=== PATIENT | male | born 1990 | race Caucasian/White ===

== ENCOUNTER → 2016-08-27 | Outpatient (CLI) | payer OTHER ==
[2016-08-27 12:56] LABS: BASO % 0.4 %; BASO ABS # 0.03 K/uL (0-0.2); COMPLETE YES; EOS % 2.5 %; IG% 0.2 %; LYMPH % 33.7 %; LYMPH ABS # 2.83 K/uL (1.2-3.4); MEAN CELL VOLUME 86.3 fL (80-100); MEAN CORPUSCULAR HEMOGLOBIN 31.6 pg (25-34); MEAN CORPUSCULAR HGB CONC 36.6 g/dl (32-36); MEAN PLATELET VOLUME 11.5 fL (7.4-10.4); MONO % 6.9 %; NEUT % 56.3 %; PLATELET COUNT 265 K/uL (130-400); WHITE BLOOD COUNT 8.39 K/uL (4.8-10.8)
[2016-08-27 13:14] LABS: ALT/SGPT 73 U/L (12-78); BLOOD UREA NITROGEN 13 mg/dl (7-18); BUN/CREATININE RATIO 13.7 (10-20); CALCIUM 9.2 mg/dl (8.5-10.1); CARBON DIOXIDE 24 mmol/L (21-32); CHLORIDE 106 mmol/L (98-107); CHOLESTEROL 193 mg/dl (0-200); CREATININE 0.91 mg/dl (0.60-1.40); GLUCOSE 96 mg/dl (70-99); POTASSIUM 4.2 mmol/L (3.5-5.1); SODIUM 141 mmol/L (136-145)
[2016-08-27 13:24] LABS: ALB/GLOB RATIO 1.1 (0.9-2); ALKALINE PHOSPHATASE 121 U/L (45-117); AST/SGOT 23 U/L (15-37); CHOLESTEROL/HDL RATIO 4.4; HDL CHOLESTEROL 44 mg/dl; LDL CHOLESTEROL CALCULATED 125 mg/dl; TRIGLYCERIDES 122 mg/dl (0-150); VERY LOW DENSITY LIPOPROT CALC 24 mg/dl
== END | disposition home or self-care (01) ==
LOC: C.LABPBG 11:00
PROVIDERS: ATTEND Family Medicine
DX: I10 Essential (primary) hypertension (principal); R74.8 Abnormal levels of other serum enzymes; R53.83 Other fatigue; Z13.220 Encounter for screening for lipoid disorders

== ENCOUNTER → 2018-03-03 | Outpatient (CLI) | payer OTHER ==
[2018-03-03 13:04] LABS: ALBUMIN 4.2 gm/dl (3.4-5.0); ALKALINE PHOSPHATASE 118 U/L (45-117); ALT/SGPT 54 U/L (12-78); AST/SGOT 19 U/L (15-37); BLOOD UREA NITROGEN 11 mg/dl (7-18); CALCIUM 9.2 mg/dl (8.5-10.1); CARBON DIOXIDE 26 mmol/L (21-32); CHOLESTEROL 202 mg/dl (0-200); CREATININE 0.84 mg/dl (0.60-1.40); GLUCOSE 108 mg/dl (70-99); LDL CHOLESTEROL CALCULATED 132 mg/dl; SODIUM 139 mmol/L (136-145); TOTAL PROTEIN 7.6 gm/dl (6.4-8.2)
== END | disposition home or self-care (01) ==
LOC: C.LABPBG 10:26
PROVIDERS: ATTEND Family Medicine
DX: I10 Essential (primary) hypertension (principal); K76.0 Fatty (change of) liver, not elsewhere classified; Z13.220 Encounter for screening for lipoid disorders; E55.9 Vitamin D deficiency, unspecified

== ENCOUNTER 2023-03-22 12:35 | Inpatient (IN) ==
[2023-03-22 13:34] LABS: Hematocrit (blood only) 35.5 % (42.0-52.0); Hemoglobin 11.9 g/dl (14.0-18.0); Mean Corpuscular Hemoglobin 27.2 pg (25.0-34.0); Mean Corpuscular Hgb Conc 33.5 g/dL (32.0-36.0); Mean Corpuscular Volume 81.1 fL (80.0-100.0); Mean Platelet Volume 10.7 fL (9.4-12.4); Platelet Count 413 K/uL (130-400); RDW Coefficient of Variation 11.9 % (11.5-14.5); RDW Standard Deviation 34.9 fL (36.4-46.3); Red Blood Count 4.38 M/uL (4.70-6.10); White Blood Count 14.23 K/ul (4.8-10.8)
[2023-03-22 13:35] LABS: Basophils # (auto) 0.07 K/uL (0.00-0.20); Basophils % (auto) 0.5 %; Eosinophils # (auto) 0.15 K/uL (0.00-0.50); Eosinophils % (auto) 1.1 %; Immature Granulocytes # (auto) 0.06 K/uL (0.01-0.20); Immature Granulocytes % (auto) 0.4 %; Lymphocytes % (auto) 17.6 %; Monocytes # (auto) 1.01 K/uL (0.11-0.59); Monocytes % (auto) 7.1 %; Neutrophils # (auto) 10.44 K/uL (1.40-6.50); Neutrophils % (auto) 73.3 %; Platelet Estimate Increased (Normal)
[2023-03-22 13:58] LABS: Alanine Aminotransferase 41 U/L (7-52); Albumin Level 3.9 gm/dl (3.4-5.0); Alkaline Phosphatase 116 U/L (34-104); Anion Gap 8 (3-11); BUN Creatinine Ratio 12.4 (10-20); Bilirubin,Total 0.4 mg/dl (0.2-1.0); Blood Urea Nitrogen 11 mg/dl (6-23); Calcium 9.3 mg/dl (8.6-10.3); Carbon Dioxide 25 mmol/L (21-32); Chloride 100 mmol/L (98-107); Est GFR (Non-African American) 114.7 ml/min; Globulin 3.9 gm/dl (2.5-4.0); Glucose 93 mg/dl (70-99(Fasting)); Sodium 133 mmol/L (136-145); Total Protein 7.8 gm/dl (6.0-8.3)
--- NOTE | 2023-03-22 14:06 | Emergency Department Note ---
History of Present Illness General Chief complaint: Respiratory Problems Stated complaint: RESPIRATORY ISSUES Time Seen by Provider: 03/22/23 13:22 History of Present Illness 32-year-old male presents emergency department with a few day history of cough with hemoptysis and left upper back pain. Patient states he has had a prior history of pneumonia last year and was treated with antibiotics. 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 Patient denies a history of pulmonary embolism or tuberculosis exposure. Patient states this morning that he was coughing and he states he had hemoptysis. Patient complains of upper back pain only in the mornings for the past few days. Patient denies any significant shortness of breath. There are no other mitigating or alleviating factors Home Medications Medication Instructions Recorded Confirmed Type multivitamin 1 tab PO DAILY 01/25/19 03/22/23 History betamethasone dipropionate 0.05 % 1 applic topical BID PRN skin 08/23/22 03/22/23 Rx topical cream irritation #45 grams lisinopril 20 mg tablet 20 mg PO HS #90 tabs 03/19/23 03/22/23 Rx Allergies Allergy/AdvReac Type Severity Reaction Status Date / Time No Known Allergies Allergy Verified 03/22/23 15:03 Past Med/Surg History Medical History COVID-19 (01/2022) Dyslipidemia Fatty liver Hypertension Migraine headache Obesity (BMI 30-39.9) Pneumonia Prediabetes Tinnitus of left ear Vitamin D deficiency Surgical History H/O tooth extraction Family History Grandmother (Paternal) Ovarian cancer Father Hypertension Obstructive sleep apnea Mother No problems noted. Denies family history of Prostate cancer Myocardial infarction Breast cancer Colorectal cancer Social History Smoking Status: Never smoker Second Hand Exposure: No; Do You Dip or Chew Tobacco: No; Hx Alcohol Use: No Hx Substance Use: No Preferred Language: Albanian Communication Ability: Effective Visual Impairment: No Limitations Hearing Ability: Normal Robot Technician Required: No Beliefs That Will Affect Care: None marital status: Single Current Living Situation: Parent current occupational status: employed current occupation: Delivery w/ [employer] How many Children do You have: 0 Feels Safe at Home: Yes Childhood Exposure to Second-Hand Smoke: No Diet: regular Diet Comment: Regular caffeine: Yes during the past year weight has: remained stable Dental Care, Regularly: Yes Physical Activity Frequency: 1-2 Times per Week Physical Activity Frequency Comment: walks his dogs Seatbelt Use: always Sunscreen Use: Yes Review of Systems A total of 10 systems reviewed and were otherwise negative Respiratory: + cough and + hemoptysis Physical Exam Vital Signs Vital Signs - 24 hr 03/22/23 12:36 03/22/23 12:36 03/22/23 14:49 Temperature 36.6 C Temperature Source Temporal Artery Scan Pulse Rate 96 H 87 Respiratory Rate 16 18 Blood Pressure 131/86 152/84 H Blood Pressure Mean 101 106 Pulse Oximetry 96 94 Oxygen Delivery Method Room Air Room Air Oxygen Flow Rate Sepsis Recent Fever Within 48 Hours No Sepsis New/Unexplained Change in Mental Status N/A Sepsis Action Taken by Nursing No Action Required 03/22/23 12:44 03/22/23 12:44 Temperature Temperature Source Pulse Rate Respiratory Rate Blood Pressure Blood Pressure Mean Pulse Oximetry 94 94 Oxygen Delivery Method Room Air Room Air Oxygen Flow Rate 0 Sepsis Recent Fever Within 48 Hours Sepsis New/Unexplained Change in Mental Status Sepsis Action Taken by Nursing GENERAL: Patient is awake alert in no acute distress patient is resting comfortably and showing no signs of anxiety EYES: The conjunctivae are clear. The pupils are round and reactive. EARS, NOSE, MOUTH AND THROAT: The nose is without any evidence of any deformity. Mucous membranes are moist. Tongue is midline. NECK: The neck is nontender and supple. RESPIRATORY: Normal respiratory effort is noted there is no evidence of wheezing rhonchi or rales CARDIOVASCULAR: Regular rate and rhythm noted there no murmurs rubs or gallops normal S1 normal S2. GASTROINTESTINAL: The abdomen is soft. Abdomen is nontender. BACK: No midline tenderness or or step-off noted range of motion in flexion extension as well as rotation no signs of muscle spasm noted MUSCULOSKELETAL/EXTREMITIES: There is no evidence of gross deformity full range of motion is noted in the hips and shoulders. SKIN: There is no obvious evidence of any rash. There are no petechiae, pallor or cyanosis noted. NEUROLOGIC: Patient is awake alert and oriented x3 strength is symmetric Course Reevaluation(s) Reevaluation #1: Patient was started on triple antibiotic therapy. Patient remains in stable condition is not significantly hypoxic does not have massive hemoptysis. I discussed evaluation with the patient and further history he is not an IV drug abuser has no exposure to TB has never been in [facility] does not vape and family does not smoke in the house. I also spoke to his father Mr. Gordon who also relays this history is negative. Patient will be admitted for further e valuation Time: 15:40 Consultations Consultation #1: Case was discussed with the [facility] hospitalist at 1600 Time: 16:10 Administered Medications Azithromycin 500 mg/ Dextrose 255 mls @ 125 mls/hr IV ONE ONE Stop: 03/22/23 16:34 Last Admin: 03/22/23 15:21 Dose: 125 mls/hr Documented By: SHAUNNA Discontinued Medications Ceftriaxone Sodium (Rocephin) 2,000 mg in 70 mls @ 140 mls/hr IV NOW STA Stop: 03/22/23 15:01 Last Infusion: 03/22/23 15:48 Dose: 0 mls/hr Documented By: Admin: 03/22/23 14:46 Dose: 140 mls/hr Documented By: SHAUNNA Ioversol (Ioversol 350 Mg 125ml Prefilled Syringe) 115 ml IV ONCE ONE Stop: 03/22/23 14:19 Last Admin: 03/22/23 14:19 Dose: 115 ml Documented By: CARMELO Medical Decision Making Medical Records Attestation: I reviewed the patient's medical records. Home Medications Current Medication List: was personally reviewed by me Laboratory Data Attestation: I reviewed the patient's lab results. Patient has an elevated white blood cell count with a shift. Patient has a normal CMP. Patient is COVID-negative. 03/22/23 12:58 03/22/23 12:44 Lab Results 03/22/23 03/22/23 03/22/23 Range/Units 12:44 12:58 12:58 WBC 14.23 H (4.8-10.8) K/ul RBC 4.38 L (4.70-6.10) M/uL Hgb 11.9 L (14.0-18.0) g/dl Hct 35.5 L (42.0-52.0) % MCV 81.1 (80.0-100.0) fL MCH 27.2 (25.0-34.0) pg MCHC 33.5 (32.0-36.0) g/dL RDW Std Deviation 34.9 L (36.4-46.3) fL RDW Coeff of Aminata 11.9 (11.5-14.5) % Plt Count 413 H (130-400) K/uL MPV 10.7 (9.4-12.4) fL Immature Gran % (Auto) 0.4 % Neut % (Auto) 73.3 % Lymph % (Auto) 17.6 % Will % (Auto) 7.1 % Eos % (Auto) 1.1 % Baso % (Auto) 0.5 % Neut # (Auto) 10.44 H (1.40-6.50) K/uL Lymph # (Auto) 2.50 (1.20-3.40) K/uL Will # (Auto) 1.01 H (0.11-0.59) K/uL Eos # (Auto) 0.15 (0.00-0.50) K/uL Baso # (Auto) 0.07 (0.00-0.20) K/uL Immature Gran # (Auto) 0.06 (0.01-0.20) K/uL Platelet Estimate Increased H (Normal) PT Cancelled INR Cancelled APTT Cancelled PTT Ratio Cancelled Sodium 133 L (136-145) mmol/L Potassium TNP Chloride 100 (98-107) mmol/L Carbon Dioxide 25 (21-32) mmol/L Anion Gap 8 (3-11) BUN 11 (6-23) mg/dl Creatinine 0.89 (0.6-1.4) mg/dl Est Cr Clr Drug Dosing 155.0 ml/min Est GFR ( Amer) 133.0 ml/min Est GFR (Non-Af Amer) 114.7 ml/min BUN/Creatinine Ratio 12.4 (10-20) Glucose 93 (70-99(Fasting)) mg/dl Calcium 9.3 (8.6-10.3) mg/dl Total Bilirubin 0.4 (0.2-1.0) mg/dl AST TNP ALT 41 (7-52) U/L Alkaline Phosphatase 116 H (34-104) U/L Troponin I High Sens 5.0 (0-20) pg/ml Total Protein 7.8 (6.0-8.3) gm/dl Albumin 3.9 (3.4-5.0) gm/dl Globulin 3.9 (2.5-4.0) gm/dl Albumin/Globulin Ratio 1.0 (0.9-2) Nasal Screen MRSA (PCR) (Negative) SARS-CoV-2, RNA, NAAT (NEGATIVE) 03/22/23 03/22/23 03/22/23 Range/Units 13:57 14:07 14:14 WBC (4.8-10.8) K/ul RBC (4.70-6.10) M/uL Hgb (14.0-18.0) g/dl Hct (42.0-52.0) % MCV (80.0-100.0) fL MCH (25.0-34.0) pg MCHC (32.0-36.0) g/dL RDW Std Deviation (36.4-46.3) fL RDW Coeff of Aminata (11.5-14.5) % Plt Count (130-400) K/uL MPV (9.4-12.4) fL Immature Gran % (Auto) % Neut % (Auto) % Lymph % (Auto) % Will % (Auto) % Eos % (Auto) % Baso % (Auto) % Neut # (Auto) (1.40-6.50) K/uL Lymph # (Auto) (1.20-3.40) K/uL Will # (Auto) (0.11-0.59) K/uL Eos # (Auto) (0.00-0.50) K/uL Baso # (Auto) (0.00-0.20) K/uL Immature Gran # (Auto) (0.01-0.20) K/uL Platelet Estimate (Normal) PT 11.3 INR 1.0 APTT 28.1 PTT Ratio 1.0 Sodium (136-145) mmol/L Potassium 3.9 Chloride (98-107) mmol/L Carbon Dioxide (21-32) mmol/L Anion Gap (3-11) BUN (6-23) mg/dl Creatinine (0.6-1.4) mg/dl Est Cr Clr Drug Dosing ml/min Est GFR ( Amer) ml/min Est GFR (Non-Af Amer) ml/min BUN/Creatinine Ratio (10-20) Glucose (70-99(Fasting)) mg/dl Calcium (8.6-10.3) mg/dl Total Bilirubin (0.2-1.0) mg/dl AST 17 ALT (7-52) U/L Alkaline Phosphatase (34-104) U/L Troponin I High Sens (0-20) pg/ml Total Protein (6.0-8.3) gm/dl Albumin (3.4-5.0) gm/dl Globulin (2.5-4.0) gm/dl Albumin/Globulin Ratio (0.9-2) Nasal Screen MRSA (PCR) (Negative) SARS-CoV-2, RNA, NAAT NEGATIVE (NEGATIVE) 03/22/23 Range/Units Unknown WBC (4.8-10.8) K/ul RBC (4.70-6.10) M/uL Hgb (14.0-18.0) g/dl Hct (42.0-52.0) % MCV (80.0-100.0) fL MCH (25.0-34.0) pg MCHC (32.0-36.0) g/dL RDW Std Deviation (36.4-46.3) fL RDW Coeff of Aminata (11.5-14.5) % Plt Count (130-400) K/uL MPV (9.4-12.4) fL Immature Gran % (Auto) % Neut % (Auto) % Lymph % (Auto) % Will % (Auto) % Eos % (Auto) % Baso % (Auto) % Neut # (Auto) (1.40-6.50) K/uL Lymph # (Auto) (1.20-3.40) K/uL Will # (Auto) (0.11-0.59) K/uL Eos # (Auto) (0.00-0.50) K/uL Baso # (Auto) (0.00-0.20) K/uL Immature Gran # (Auto) (0.01-0.20) K/uL Platelet Estimate (Normal) PT INR APTT PTT Ratio Sodium (136-145) mmol/L Potassium Chloride (98-107) mmol/L Carbon Dioxide (21-32) mmol/L Anion Gap (3-11) BUN (6-23) mg/dl Creatinine (0.6-1.4) mg/dl Est Cr Clr Drug Dosing ml/min Est GFR ( Amer) ml/min Est GFR (Non-Af Amer) ml/min BUN/Creatinine Ratio (10-20) Glucose (70-99(Fasting)) mg/dl Calcium (8.6-10.3) mg/dl Total Bilirubin (0.2-1.0) mg/dl AST ALT (7-52) U/L Alkaline Phosphatase (34-104) U/L Troponin I High Sens (0-20) pg/ml Total Protein (6.0-8.3) gm/dl Albumin (3.4-5.0) gm/dl Globulin (2.5-4.0) gm/dl Albumin/Globulin Ratio (0.9-2) Nasal Screen MRSA (PCR) Negative (Negative) SARS-CoV-2, RNA, NAAT (NEGATIVE) Imaging Data Attestation: I personally reviewed and interpreted this imaging study as follows: My Impression: Chest x-ray interpreted by me left upper lobe infiltrate is present Radiologist's Impression: Chest X-Ray 03/22/23 12:44 SINGLE VIEW CHEST CLINICAL HISTORY: Atypical chest pain. FINDINGS: A PA chest radiograph is compared to study dated 01/21/2022. The cardiomediastinal silhouette is unremarkable. Left upper lobe consolidation is typical for pneumonia. The right lung appears clear. No large pleural effusion is seen. No pneumothorax is identify. The bony thorax is grossly intact. IMPRESSION: Left upper lobe consolidation is typical for pneumonia. Clinical correlation will be required and radiographic follow-up to resolution is recommended. ACT 112: Negative or not required by law. Electronically signed by: Kai Hernandez M.D. 03/22/2023 2:09 PM Chest CTA 03/22/23 13:22 CT ANGIOGRAM OF THE CHEST CLINICAL HISTORY: Atypical/left-sided chest pain. COMPARISON STUDY: Chest x-ray dated 04/01/2023. Chest CT dated 01/15/2019. TECHNIQUE: Following the IV administration of 150 cc of Optiray 350, CT angiogram of the chest was performed from the upper abdomen to the thoracic inlet utilizing the pulmonary embolus protocol. Images are reviewed in the axial, sagittal, and coronal planes. 3-D MIPS images are created and assessed. IV contrast was administered without complication. A dose lowering technique was utilized adhering to the principles of ALARA. CT DOSE: 837.75 mGy.cm FINDINGS: Thyroid: Imaged portions of the thyroid gland are normal in size and attenuation. Thoracic aorta: The thoracic aorta is normal in caliber and demonstrates 4- vessel variant arch anatomy. No dissection is seen. Pulmonary vasculature: The pulmonary trunk is normal in caliber. There are no filling defects identified in main, lobar, or segmental pulmonary branches to suggest pulmonary embolus. Heart: The heart is normal in size and without pericardial effusion. Lungs and pleural spaces: There is masslike consolidation in the left upper lobe with evidence of cavitation. Mild patchy consolidation is also seen in the superior segment of the left lower lobe just below the major fissure. The right lung is clear. No pleural effusion is identified. The trachea and central airways are patent. 3 mm right lower lobe pulmonary nodules on images #61 and #69 and at least 4 left lower lobe nodules measure up to 4 mm are unchanged and statistically of doubtful significance in this age group. Mediastinum: There is mediastinal lymphadenopathy. Prevascular nodes measure up to 13 mm in short axis. Maddison: There are enlarged left hilar lymph nodes. These measure up to 15 mm in short axis. Axillae: There is no axillary lymphadenopathy. Upper abdomen: There is a small hiatal hernia. The spleen is enlarged measuring 14.5 cm in length. Skeletal structures: No lytic or blastic bony lesions are seen. IMPRESSION: 1. There is no evidence of pulmonary embolus in the main, lobar, or segmental pulmonary arteries. 2. Masslike consolidation in the left upper lobe with evidence of developing cavitation/necrosis. The appearance is typical for pneumonia, and there is also minimal consolidation in the left lower lobe. Clinical correlation will be re quired and radiographic follow-up to resolution is recommended. 3. Mildly enlarged mediastinal and left hilar lymph nodes are likely reactive. 4. Low suspicion pulmonary nodules measuring up to 4 mm have not significantly changed from 2019 and are statistically of doubtful significance in this age group. 5. The right lung is clear. No pleural effusion is identified. 6. Splenomegaly. 7. Additional findings as above. ACT 112: Negative or not required by law. Electronically signed by: Kai Hernandez M.D. 03/22/2023 3:14 PM MDM Narrative Medical decision making differential diagnosis includes pneumonia, PE, cancer, TB, bronchitis Plan is to check labs, chest x-ray, CT Patient was started on triple antibiotic therapy. Patient is currently in isolation, I did discuss the evaluation with the patient the patient's father Plan is to admit for left upper lobe pneumonia Impression & Plan Necrotizing pneumonia Discharge Plan Visit Data Chief Complaint: Respiratory Problems Stated Complaint: RESPIRATORY ISSUES ED Provider: Lasha Lara Discharge Problem: Necrotizing pneumonia Patient Disposition: Admitted As Inpatient Forms Stand Alone Forms: My [facility] Prescriptions Prescriptions: No Action lisinopril 20 mg tablet 20 mg PO HS Qty: 90 1RF multivitamin tablet 1 tab PO DAILY betamethasone dipropionate 0.05 % cream 1 applic topical BID PRN (Reason: skin irritation) Qty: 45 0RF Referrals Referrals: Marie Esparza DO [Primary Care Provider] -
--- NOTE | 2023-03-22 14:10 | XRay Report ---
SINGLE VIEW CHEST CLINICAL HISTORY: Atypical chest pain. FINDINGS: A PA chest radiograph is compared to study dated 01/21/2022. The cardiomediastinal silhouett e is unremarkable. Left upper lobe consolidation is typical for pneumonia. The right lung appears eamon ar. No large pleural effusion is seen. No pneumothorax is identify. The bony thorax is grossly intact . IMPRESSION: Left upper lobe consolidation is typical for pneumonia. Clinical correlation will be requ ired and radiographic follow-up to resolution is recommended. ACT 112: Negative or not required by law. Electronically signed by: Kai Hernandez M.D. 03/22/2023 2:09 PM
[2023-03-22] MEDS ORDERED: IOVERSOL 350 MG 125mL Prefilled Syringe IV ONE (14:18)
[2023-03-22] MEDS ORDERED: VANCOMYCIN CONSULT ACTIVE PRN (14:32)
[2023-03-22] MEDS ORDERED: VANCOMYCIN HCL 2,500 MG in SODIUM CHLORIDE 0.9% 500 ML IV ONE (14:32)
[2023-03-22] MEDS ORDERED: cefTRIAXone SODIUM 2,000 MG/70 ML BAG IV STA (14:32)
[2023-03-22] MEDS ORDERED: AZITHROMYCIN 500 MG in DEXTROSE 5% 250 ML IV ONE (14:32)
[2023-03-22 14:46] LABS: Potassium 3.9 mmol/L (3.5-5.1)
[2023-03-22 14:59] LABS: Partial Thromboplastin Time 28.1 Seconds (21.0-31.0); Prothrombin Time 11.3 Seconds (9.0-12.0)
--- NOTE | 2023-03-22 15:16 | CT Scan Report ---
CT ANGIOGRAM OF THE CHEST CLINICAL HISTORY: Atypical/left-sided chest pain. COMPARISON STUDY: Chest x-ray dated 04/01/2023. Chest CT dated 01/15/2019. TECHNIQUE: Following the IV administration of 150 cc of Optiray 350, CT angiogram of the chest was pe rformed from the upper abdomen to the thoracic inlet utilizing the pulmonary embolus protocol. Images are reviewed in the axial, sagittal, and coronal planes. 3-D MIPS images are created and assessed. I V contrast was administered without complication. A dose lowering technique was utilized adhering to the principles of ALARA. CT DOSE: 837.75 mGy.cm FINDINGS: Thyroid: Imaged portions of the thyroid gland are normal in size and attenuation. Thoracic aorta: The thoracic aorta is normal in caliber and demonstrates 4-vessel variant arch anatom y. No dissection is seen. Pulmonary vasculature: The pulmonary trunk is normal in caliber. There are no filling defects identif ied in main, lobar, or segmental pulmonary branches to suggest pulmonary embolus. Heart: The heart is normal in size and without pericardial effusion. Lungs and pleural spaces: There is masslike consolidation in the left upper lobe with evidence of cav itation. Mild patchy consolidation is also seen in the superior segment of the left lower lobe just b elow the major fissure. The right lung is clear. No pleural effusion is identified. The trachea and c entral airways are patent. 3 mm right lower lobe pulmonary nodules on images #61 and #69 and at least 4 left lower lobe nodules measure up to 4 mm are unchanged and statistically of doubtful significanc e in this age group. Mediastinum: There is mediastinal lymphadenopathy. Prevascular nodes measure up to 13 mm in short axi s. Maddison: There are enlarged left hilar lymph nodes. These measure up to 15 mm in short axis. Axillae: There is no axillary lymphadenopathy. Upper abdomen: There is a small hiatal hernia. The spleen is enlarged measuring 14.5 cm in length. Skeletal structures: No lytic or blastic bony lesions are seen. IMPRESSION: 1. There is no evidence of pulmonary embolus in the main, lobar, or segmental pulmonary arteries. 2. Masslike consolidation in the left upper lobe with evidence of developing cavitation/necrosis. The appearance is typical for pneumonia, and there is also minimal consolidation in the left lower lobe. Clinical correlation will be required and radiographic follow-up to resolution is recommended. 3. Mildly enlarged mediastinal and left hilar lymph nodes are likely reactive. 4. Low suspicion pulmonary nodules measuring up to 4 mm have not significantly changed from 2019 and are statistically of doubtful significance in this age group. 5. The right lung is clear. No pleural effusion is identified. 6. Splenomegaly. 7. Additional findings as above. ACT 112: Negative or not required by law. Electronically signed by: Kai Hernandez M.D. 03/22/2023 3:14 PM
[2023-03-22 16:12] LABS: C Reactive Protein 10.62 mg/dl (0-0.5)
--- NOTE | 2023-03-22 16:37 | History & Physical Report ---
Date of Service March 22, 2023 Assessment & Plan (1) Necrotizing pneumonia: Plan: 32yo male with ongoing cough and hemoptysis. CT as above with lesion in MARNIE with evidence of necrosis and early cavitation. Patient is afebrile, HD stable, no respiratory distress. Labs significant for elevated WBC and platelets. Nonsmoker, no identifiable risk factors for TB Likely CAP, strep pneumonia? -Admit to medical -Will maintain Airborne isolation precautions for now -Check sputum culture, procalcitonin, Quantiferon gold and MRSA nares -Antibiotic coverage with Azithromycin and Unasyn -Tylenol PRN -Tessalon PRN -Pulmonary consultation appreciated (2) Hypertension: Plan: Chronic. Blood pressure elevated. PCP recently changed Lisinopril to Losartan for possible management of cough - patient did not start this medication yet. Cough likely secondary to PNA rather than medication effects -Continue Lisinopril -Monitor BP F/E/N - Heplock, encourage PO intake, electrolytes WNL, Heart Healthy diet Ppx - Lovenox Code - Full Dispo - Admit to medical History of Present Illness Chief Complaint: cough, hemoptysis Primary Care Provider: Marie Esparza DO David Gordon is a 32 you male with history of HTN, HLP presenting with cough and hemoptysis. Patient has had ongoing cough for several weeks. This week he noted worsening cough with increase in sputum production with blood tinged sputum. He has not had documented fever but has had chills and night sweats ans well as some inspiratory pain in his left upper lung posteriorly. He denies chest pain, nausea, vomiting, diarrhea or urinary complaints. No preceding URI symptoms reported. He is a lifelong nonsmoker. No recent dental work Did have pneumonia in January 2019 - presented to the ER at that time with cough and hemoptysis. He was discharged home on Azithromycin and Cefdinir at that time and reports that his symptoms resolved. Patient with no history of homelessness, incarceration or living in a [place] [facility] setting. No close contact with an persons with known Tuberculosis. He does spend a lot of time in his basement which he reports is musty and moldy smelling at times. In the ER he is afebrile, HD stable Adequate oxygenation on room air with no tachypnea ER Course: Azithromycin Ceftriaxone Allergies Allergy/AdvReac Type Severity Reaction Status Date / Time No Known Allergies Allergy Verified 03/22/23 15:03 Home Medications Medication Instructions Recorded Confirmed Type multivitamin 1 tab PO DAILY 01/25/19 03/22/23 History betamethasone dipropionate 0.05 % 1 applic topical BID PRN skin 08/23/22 03/22/23 Rx topical cream irritation #45 grams lisinopril 20 mg tablet 20 mg PO HS #90 tabs 03/19/23 03/22/23 Rx Past Med/Surg History Medical History COVID-19 (01/2022) Dyslipidemia Fatty liver Hypertension Migraine headache Obesity (BMI 30-39.9) Pneumonia Prediabetes Tinnitus of left ear Vitamin D deficiency Surgical History H/O tooth extraction Family History Grandmother (Paternal) Ovarian cancer Father Hypertension Obstructive sleep apnea Mother No problems noted. Denies family history of Prostate cancer Myocardial infarction Breast cancer Colorectal cancer Social History Smoking Status: Never smoker Second Hand Exposure: No; Do You Dip or Chew Tobacco: No; Hx Alcohol Use: No Hx Substance Use: No Preferred Language: Chinese Communication Ability: Effective Visual Impairment: No Limitations Hearing Ability: Normal Auto Inspector Required: No Beliefs That Will Affect Care: None marital status: Single Current Living Situation: Parent current occupational status: employed current occupation: Delivery w/ [employer] How many Children do You have: 0 Feels Safe at Home: Yes Childhood Exposure to Second-Hand Smoke: No Diet: regular Diet Comment: Regular caffeine: Yes during the past year weight has: remained stable Dental Care, Regularly: Yes Physical Activity Frequency: 1-2 Times per Week Physical Activity Frequency Comment: walks his dogs Seatbelt Use: always Sunscreen Use: Yes Review of Systems Review of Systems: All systems reviewed & are unremarkable except as noted in HPI & below Physical Exam Physical Exam: General: patient resting comfortably, NAD, non-toxic in appearance, AA&O x 4 Skin: warm, dry, intact, no rashes or lesions HEENT: NC/AT, PERRL, EOMI, anicteric sclera, conjunctiva without injection, external ear normal to inspection and nontender, nares patent, moist mucus membranes, dentition intact, no oropharyngeal lesions, neck supple, trachea midline, no LAD, no thyromegaly, no JVD Heart: +S1/S2, regular, no m/r/g Lungs: equal air entry bilaterally, no rales/rhonchi/wheezes Abd: +BS, soft, NT/ND, no masses/organomegaly/ascites Ext: warm, 2+ pulses in UE/LE bilaterally, no clubbing/cyanosis or edema Neuro: nonfocal, patient AA&O x 4, speech intact, no facial droop, moving all extremities on command with equal strength 5/5 Results & Data Results & Data Vital Signs (Past 12 Hours) Vital Signs Temp Pulse Resp BP Pulse Ox O2 Del Method O2 Flow Rate 03/22/23 12:44 94 Room Air 0 03/22/23 12:44 94 Room Air 03/22/23 14:49 87 18 152/84 H 94 Room Air 03/22/23 12:36 Room Air 03/22/23 12:36 36.6 C 96 H 16 131/86 96 Laboratory Results Laboratory Results WBC 14.23 K/ul (4.8-10.8) H 03/22/23 12:58 RBC 4.38 M/uL (4.70-6.10) L 03/22/23 12:58 Hgb 11.9 g/dl (14.0-18.0) L 03/22/23 12:58 Hct 35.5 % (42.0-52.0) L 03/22/23 12:58 MCV 81.1 fL (80.0-100.0) 03/22/23 12:58 MCH 27.2 pg (25.0-34.0) 03/22/23 12:58 MCHC 33.5 g/dL (32.0-36.0) 03/22/23 12:58 RDW Std Deviation 34.9 fL (36.4-46.3) L 03/22/23 12:58 RDW Coeff of Aminata 11.9 % (11.5-14.5) 03/22/23 12:58 Plt Count 413 K/uL (130-400) H 03/22/23 12:58 MPV 10.7 fL (9.4-12.4) 03/22/23 12:58 Immature Gran % (Auto) 0.4 % 03/22/23 12:58 Neut % (Auto) 73.3 % 03/22/23 12:58 Lymph % (Auto) 17.6 % 03/22/23 12:58 Cache % (Auto) 7.1 % 03/22/23 12:58 Eos % (Auto) 1.1 % 03/22/23 12:58 Baso % (Auto) 0.5 % 03/22/23 12:58 Neut # (Auto) 10.44 K/uL (1.40-6.50) H 03/22/23 12:58 Lymph # (Auto) 2.50 K/uL (1.20-3.40) 03/22/23 12:58 Cache # (Auto) 1.01 K/uL (0.11-0.59) H 03/22/23 12:58 Eos # (Auto) 0.15 K/uL (0.00-0.50) 03/22/23 12:58 Baso # (Auto) 0.07 K/uL (0.00-0.20) 03/22/23 12:58 Immature Gran # (Auto) 0.06 K/uL (0.01-0.20) 03/22/23 12:58 Platelet Estimate Increased (Normal) H 03/22/23 12:58 ESR 96 mm/hr (0-15) H 03/22/23 16:02 PT 11.3 Seconds (9.0-12.0) 03/22/23 14:07 INR 1.0 (0.9-1.1) 03/22/23 14:07 APTT 28.1 Seconds (21.0-31.0) 03/22/23 14:07 PTT Ratio 1.0 03/22/23 14:07 Sodium 133 mmol/L (136-145) L 03/22/23 12:44 Potassium 3.9 mmol/L (3.5-5.1) 03/22/23 14:14 Chloride 100 mmol/L (98-107) 03/22/23 12:44 Carbon Dioxide 25 mmol/L (21-32) 03/22/23 12:44 Anion Gap 8 (3-11) 03/22/23 12:44 BUN 11 mg/dl (6-23) 03/22/23 12:44 Creatinine 0.89 mg/dl (0.6-1.4) 03/22/23 12:44 Est Cr Clr Drug Dosing 155.0 ml/min 03/22/23 12:44 Est GFR ( Amer) 133.0 ml/min 03/22/23 12:44 Est GFR (Non-Af Amer) 114.7 ml/min 03/22/23 12:44 BUN/Creatinine Ratio 12.4 (10-20) 03/22/23 12:44 Glucose 93 mg/dl (70-99(Fasting)) 03/22/23 12:44 Calcium 9.3 mg/dl (8.6-10.3) 03/22/23 12:44 Total Bilirubin 0.4 mg/dl (0.2-1.0) 03/22/23 12:44 AST 17 U/L (13-39) 03/22/23 14:14 ALT 41 U/L (7-52) 03/22/23 12:44 Alkaline Phosphatase 116 U/L (34-104) H 03/22/23 12:44 Troponin I High Sens 5.0 pg/ml (0-20) 03/22/23 12:44 C-Reactive Protein 10.62 mg/dl (0-0.5) H 03/22/23 12:44 Total Protein 7.8 gm/dl (6.0-8.3) 03/22/23 12:44 Albumin 3.9 gm/dl (3.4-5.0) 03/22/23 12:44 Globulin 3.9 gm/dl (2.5-4.0) 03/22/23 12:44 Albumin/Globulin Ratio 1.0 (0.9-2) 03/22/23 12:44 Nasal Screen MRSA (PCR) Negative (Negative) 03/22/23 Unknown SARS-CoV-2, RNA, NAAT NEGATIVE (NEGATIVE) 03/22/23 13:57 Impressions Chest X-Ray 03/22/23 12:44 SINGLE VIEW CHEST CLINICAL HISTORY: Atypical chest pain. FINDINGS: A PA chest radiograph is compared to study dated 01/21/2022. The cardiomediastinal silhouette is unremarkable. Left upper lobe consolidation is t ypical for pneumonia. The right lung appears clear. No large pleural effusion is seen. No pneumothorax is identify. The bony thorax is grossly intact. IMPRESSION: Left upper lobe consolidation is typical for pneumonia. Clinical correlation will be required and radiographic follow-up to resolution is recommended. ACT 112: Negative or not required by law. Electronically signed by: Kai Hernandez M.D. 03/22/2023 2:09 PM Chest CTA 03/22/23 13:22 CT ANGIOGRAM OF THE CHEST CLINICAL HISTORY: Atypical/left-sided chest pain. COMPARISON STUDY: Chest x-ray dated 04/01/2023. Chest CT dated 01/15/2019. TECHNIQUE: Following the IV administration of 150 cc of Optiray 350, CT angiogram of the chest was performed from the upper abdomen to the thoracic inlet utilizing the pulmonary embolus protocol. Images are reviewed in the axial, sagittal, and coronal planes. 3-D MIPS images are created and assessed. IV contrast was administered without complication. A dose lowering technique was utilized adhering to the principles of ALARA. CT DOSE: 837.75 mGy.cm FINDINGS: Thyroid: Imaged portions of the thyroid gland are normal in size and attenuation. Thoracic aorta: The thoracic aorta is normal in caliber and demonstrates 4- vessel variant arch anatomy. No dissection is seen. Pulmonary vasculature: The pulmonary trunk is normal in caliber. There are no filling defects identified in main, lobar, or segmental pulmonary branches to suggest pulmonary embolus. Heart: The heart is normal in size and without pericardial effusion. Lungs and pleural spaces: There is masslike consolidation in the left upper lobe with evidence of cavitation. Mild patchy consolidation is also seen in the superior segment of the left lower lobe just below the major fissure. The right lung is clear. No pleural effusion is identified. The trachea and central airways are patent. 3 mm right lower lobe pulmonary nodules on images #61 and #69 and at least 4 left lower lobe nodules measure up to 4 mm are unchanged and statistically of doubtful significance in this age group. Mediastinum: There is mediastinal lymphadenopathy. Prevascular nodes measure up to 13 mm in short axis. Maddison: There are enlarged left hilar lymph nodes. These measure up to 15 mm in short axis. Axillae: There is no axillary lymphadenopathy. Upper abdomen: There is a small hiatal hernia. The spleen is enlarged measuring 14.5 cm in length. Skeletal structures: No lytic or blastic bony lesions are seen. IMPRESSION: 1. There is no evidence of pulmonary embolus in the main, lobar, or segmental pulmonary arteries. 2. Masslike consolidation in the left upper lobe with evidence of developing cavitation/necrosis. The appearance is typical for pneumonia, and there is also minimal consolidation in the left lower lobe. Clinical correlation will be required and radiographic follow-up to resolution is recommended. 3. Mildly enlarged mediastinal and left hilar lymph nodes are likely reactive. 4. Low suspicion pulmonary nodules measuring up to 4 mm have not significantly changed from 2019 and are statistically of doubtful significance in this age group. 5. The right lung is clear. No pleural effusion is identified. 6. Splenomegaly. 7. Additional findings as above. ACT 112: Negative or not required by law. Electronically signed by: Kai Hernandez M.D. 03/22/2023 3:14 PM Code Status & VTE Plan VTE Prophylaxis Plan VTE Prophylaxis will be ordered: Yes PG Care Time/CCT Total # of Minutes Spent Total Time Spent with Patient: Total time spent is greater than 50% in coordination of care (as documented) at patient's floor/unit and/or counseling patient: Coding Level of Care Code 83133 INT INP/OBS CARE 2/55MIN Diagnoses Necrotizing pneumonia J85.0 Hypertension I10 Hypertension type: essential hypertension (2) Hypertension Hypertension type: essential hypertension Qualified Code(s): I10 - Essential (primary) hypertension
[2023-03-22 17:00] LABS: Adenovirus PCR Not Detected (NotDetected); Bordetella parapertussis PCR Not Detected (NotDetected); Bordetella pertussis PCR Not Detected (NotDetected); Chlamydia pneumoniae PCR Not Detected (NotDetected); Coronavirus 229E PCR Not Detected (NotDetected); Coronavirus CoV-2 (COVID19)PCR Not Detected (NotDetected); Coronavirus HKU1 PCR Not Detected (NotDetected); Coronavirus NL63 PCR Not Detected (NotDetected); Coronavirus OC43PCR Not Detected (NotDetected); Human Metapneumovirus PCR Not Detected (NotDetected); Influenza A PCR Not Detected (NotDetected); Influenza B PCR Not Detected (NotDetected); Mycoplasma pneumoniae PCR Not Detected (NotDetected); Parainfluenza Virus 1 PCR Not Detected (NotDetected); Parainfluenza Virus 2 PCR Not Detected (NotDetected); Parainfluenza Virus 3 PCR Not Detected (NotDetected); Parainfluenza Virus 4 PCR Not Detected (NotDetected); Respiratory Syncytial VirusPCR Not Detected (NotDetected); Rhinovirus/Enterovirus PCR Not Detected (NotDetected)
[2023-03-22] MEDS ORDERED: ACETAMINOPHEN 325 MG TAB PO PRN (18:01)
[2023-03-22] MEDS ORDERED: ONDANSETRON INJ 2 MG/ML 2 ML VIAL IV PRN (18:01)
[2023-03-22] MEDS: AMPICILLIN/SULBACTAM SOD 3,000 MG in 0.9 % SODIUM CHLORIDE 100 ML IV SCH (18:48)
[2023-03-22] MEDS: ENOXAPARIN INJ 40 MG/0.4 ML SYR SQ SCH (20:08)
[2023-03-22] MEDS: lisinopril 20 MG TAB PO SCH (20:08)
[2023-03-22] MEDS: BENZONATATE 100 MG CAPSULE PO SCH (20:08)
[2023-03-23] MEDS: AMPICILLIN/SULBACTAM SOD 3,000 MG in 0.9 % SODIUM CHLORIDE 100 ML IV SCH ×4 (01:01→20:02)
--- NOTE | 2023-03-23 07:31 | Hospitalist Progress Note ---
Date of Service March 23, 2023 Assessment & Plan (1) Necrotizing pneumonia: Plan: 32yo male with ongoing cough and hemoptysis for past 5-6 days with chills but no fevers. Reports chronic dry cough for years Had PNA last year with similar symptoms. No occupation exposure/travel history/unintentional weight loss/night sweats, incarceration/group living, non- smoker. ?CAP, strep pneumonia? ESR 96, CRP 10.62 WBC 14.2k on admission, no fever CXR w/ Left upper lobe consolidation is typical for pneumonia CT chest NEGATIVE for PE * Noting Masslike consolidation in the left upper lobe with evidence of developing cavitation/necrosis. The appearance is typical for pneumonia, and there is also minimal consolidation in the left lower lobe. Clinical correlation will be required and radiographic follow-up to resolution is recommended. Mildly enlarged mediastinal and left hilar lymph nodes are likely reactive. Low suspicion pulmonary nodules measuring up to 4 mm have not significantly changed from 2019 and are statistically of doubtful significance in this age group. Continues on Unasyn/Azithromycin Azithromycin decreased to 250mg daily per pulmonology Blood cultures pending Sputum cx, AFB, legionella urine cx ordered/to be collected Pulmonology consulted, recs as below: * Continue respiratory isolation, airborne * QuantiFERON pending. * Check sputum AFB --> If AFBs can be collected on 3 consecutive days and are negative, the patient can come out of isolation. * Check cocci titers and cryptococcal antigen If the patient's QuantiFERON is negative, cultures are negative, and sputum AFB smears are negative on 3 consecutive days, could consider bronchoscopy at that point in time. Supportive care Antipyretics, antiemetics prn Lovenox SQ for DVT prophylaxis Monitor labs on repeat (2) Hypertension: Plan: Chronic. Elevated on admission, recent switch by PCP from lisinopril to losartan for concerns for cough (did not start) Given cough likely from above, resumed prior lisinopril BP stable 110/70 this morning AHA diet Monitor BP (3) Vitamin D deficiency: Plan: lwo on outpatient labs, replacement ordered f/u pcp Plan continued inpatient stay, changed to full admit Admission and Anticipated Discharge Date Admission Date: March 22, 2023 Supervising Physician Co-Signing Physician Notes The patient was not seen by me. The chart was reviewed. Case discussed with LUIS DANIEL Agarwal. Agree with assessment and plan Subjective Eval this morning, sitting up in bed, feeling well. No further hemoptysis, sputum in container to send. Eval by pulmonology this morning. Patient reports feeling well/usual health but ok w/ plan as outlined with pulmonology/repeat sputum/etc, continued abx. Questions/concerns addressed at this time. Physical Exam Physical Exam: General: WN/WD male sitting up in bed, talkative, no shortness of breath/tachypnea/hypoxia HEENT: head normocephalic, atraumatic, mmm trachea midline Resp[: no distress, respirations even/unlabored, no cough/tachypnea, sputum on bedside table without blood, faint inspiratory wheeze MARNIE, no crackles/rales, 96% on RA CV: RRR< no significant m/r/g, no pitting edema/calf tenderness GI: +BS, soft/NT : no fatima MSK/Neuro: no focal deficit, no slurred speech, strength equal throughout, follows commands Psych: AOx3, pleasant and cooperative with exam Results & Data Results & Data Vital Signs (Past 12 Hours) Vital Signs Temp Pulse Resp BP Pulse Ox O2 Del Method 03/22/23 19:35 Room Air 03/22/23 19:35 Room Air 03/22/23 22:21 36.9 C 77 18 117/71 96 Room Air Laboratory Results 03/23/23 03/23/23 03/23/23 Range/Units 07:56 07:42 07:42 WBC 9.15 (4.8-10.8) K/ul RBC 4.33 L (4.70-6.10) M/uL Hgb 11.6 L (14.0-18.0) g/dl Hct 35.9 L (42.0-52.0) % MCV 82.9 (80.0-100.0) fL MCH 26.8 (25.0-34.0) pg MCHC 32.3 (32.0-36.0) g/dL RDW Std Deviation 37.0 (36.4-46.3) fL RDW Coeff of Aminata 12.1 (11.5-14.5) % Plt Count 405 H (130-400) K/uL MPV 10.2 (9.4-12.4) fL Immature Gran % (Auto) 0.5 % Neut % (Auto) 71.1 % Lymph % (Auto) 18.7 % [place] % (Auto) 7.7 % Eos % (Auto) 1.6 % Baso % (Auto) 0.4 % Neut # (Auto) 6.50 (1.40-6.50) K/uL Lymph # (Auto) 1.71 (1.20-3.40) K/uL [place] # (Auto) 0.70 H (0.11-0.59) K/uL Eos # (Auto) 0.15 (0.00-0.50) K/uL Baso # (Auto) 0.04 (0.00-0.20) K/uL Immature Gran # (Auto) 0.05 (0.01-0.20) K/uL Platelet Estimate (Normal) ESR (0-15) mm/hr PT INR APTT PTT Ratio Sodium 139 (136-145) mmol/L Potassium 4.1 Chloride 103 (98-107) mmol/L Carbon Dioxide 28 (21-32) mmol/L Anion Gap 8 (3-11) BUN 9 (6-23) mg/dl Creatinine 0.71 (0.6-1.4) mg/dl Est Cr Clr Drug Dosing 191.9 ml/min Est GFR ( Amer) 144.9 ml/min Est GFR (Non-Af Amer) 125.0 ml/min BUN/Creatinine Ratio 12.7 (10-20) Glucose 100 H (70-99(Fasting)) mg/dl Calcium 9.1 (8.6-10.3) mg/dl Magnesium 2.1 (1.7-2.4) mg/dl Total Bilirubin 0.4 (0.2-1.0) mg/dl AST 11 L ALT 31 (7-52) U/L Alkaline Phosphatase 93 (34-104) U/L Troponin I High Sens (0-20) pg/ml C-Reactive Protein (0-0.5) mg/dl Total Protein 7.7 (6.0-8.3) gm/dl Albumin 3.7 (3.4-5.0) gm/dl Globulin 4.0 (2.5-4.0) gm/dl Albumin/Globulin Ratio 0.9 (0.9-2) Procalcitonin (0-0.5) ng/ml Nasal Screen MRSA (PCR) (Negative) Adenovirus (PCR) (NotDetected) B. pertussis DNA (PCR) (NotDetected) B.parapertussis DNA PCR (NotDetected) C. pneumoniae DNA (PCR) (NotDetected) Coccidioides Ab (ID) Pending Coronavirus OC43 (PCR) (NotDetected) Coronavirus HKU1 (PCR) (NotDetected) Coronavirus 229E (PCR) (NotDetected) SARS-CoV-2 (PCR) (NotDetected) Coronavirus NL63 (PCR) (NotDetected) Cryptococcus Source Pending Cryptococcal Ag (Latex) Pending Human Metapneumovir PCR (NotDetected) Influenza Type A (PCR) (NotDetected) Influenza Type B (PCR) (NotDetected) Urine Legionella Ag M. pneumoniae (PCR) (NotDetected) Parainfluenza 1 (PCR) (NotDetected) Parainfluenza 2 (PCR) (NotDetected) Parainfluenza 3 (PCR) (NotDetected) Parainfluenza 4 (PCR) (NotDetected) RSV (PCR) (NotDetected) Entero/Rhino (PCR) (NotDetected) SARS-CoV-2, RNA, NAAT (NEGATIVE) TB Test (QFT) Gold Plus TB Test (QFT) Nil TB Test Mitogen - Nil TB Test Ag - Nil 1 TB Test Ag - Nil 2 03/22/23 03/22/23 03/22/23 Range/Units Unknown 20:30 16:02 WBC (4.8-10.8) K/ul RBC (4.70-6.10) M/uL Hgb (14.0-18.0) g/dl Hct (42.0-52.0) % MCV (80.0-100.0) fL MCH (25.0-34.0) pg MCHC (32.0-36.0) g/dL RDW Std Deviation (36.4-46.3) fL RDW Coeff of Aminata (11.5-14.5) % Plt Count (130-400) K/uL MPV (9.4-12.4) fL Immature Gran % (Auto) % Neut % (Auto) % Lymph % (Auto) % [place] % (Auto) % Eos % (Auto) % Baso % (Auto) % Neut # (Auto) (1.40-6.50) K/uL Lymph # (Auto) (1.20-3.40) K/uL [place] # (Auto) (0.11-0.59) K/uL Eos # (Auto) (0.00-0.50) K/uL Baso # (Auto) (0.00-0.20) K/uL Immature Gran # (Auto) (0.01-0.20) K/uL Platelet Estimate (Normal) ESR (0-15) mm/hr PT INR APTT PTT Ratio Sodium (136-145) mmol/L Potassium Chloride (98-107) mmol/L Carbon Dioxide (21-32) mmol/L Anion Gap (3-11) BUN (6-23) mg/dl Creatinine (0.6-1.4) mg/dl Est Cr Clr Drug Dosing ml/min Est GFR ( Amer) ml/min Est GFR (Non-Af Amer) ml/min BUN/Creatinine Ratio (10-20) Glucose (70-99(Fasting)) mg/dl Calcium (8.6-10.3) mg/dl Magnesium (1.7-2.4) mg/dl Total Bilirubin (0.2-1.0) mg/dl AST ALT (7-52) U/L Alkaline Phosphatase (34-104) U/L Troponin I High Sens (0-20) pg/ml C-Reactive Protein (0-0.5) mg/dl Total Protein (6.0-8.3) gm/dl Albumin (3.4-5.0) gm/dl Globulin (2.5-4.0) gm/dl Albumin/Globulin Ratio (0.9-2) Procalcitonin < 0.05 (0-0.5) ng/ml Nasal Screen MRSA (PCR) Negative (Negative) Adenovirus (PCR) (NotDetected) B. pertussis DNA (PCR) (NotDetected) B.parapertussis DNA PCR (NotDetected) C. pneumoniae DNA (PCR) (NotDetected) Coccidioides Ab (ID) Coronavirus OC43 (PCR) (NotDetected) Coronavirus HKU1 (PCR) (NotDetected) Coronavirus 229E (PCR) (NotDetected) SARS-CoV-2 (PCR) (NotDetected) Coronavirus NL63 (PCR) (NotDetected) Cryptococcus Source Cryptococcal Ag (Latex) Human Metapneumovir PCR (NotDetected) Influenza Type A (PCR) (NotDetected) Influenza Type B (PCR) (NotDetected) Urine Legionella Ag Pending M. pneumoniae (PCR) (NotDetected) Parainfluenza 1 (PCR) (NotDetected) Parainfluenza 2 (PCR) (NotDetected) Parainfluenza 3 (PCR) (NotDetected) Parainfluenza 4 (PCR) (NotDetected) RSV (PCR) (NotDetected) Entero/Rhino (PCR) (NotDetected) SARS-CoV-2, RNA, NAAT (NEGATIVE) TB Test (QFT) Gold Plus TB Test (QFT) Nil TB Test Mitogen - Nil TB Test Ag - Nil 1 TB Test Ag - Nil 2 03/22/23 03/22/23 03/22/23 Range/Units 16:02 16:02 15:56 WBC (4.8-10.8) K/ul RBC (4.70-6.10) M/uL Hgb (14.0-18.0) g/dl Hct (42.0-52.0) % MCV (80.0-100.0) fL MCH (25.0-34.0) pg MCHC (32.0-36.0) g/dL RDW Std Deviation (36.4-46.3) fL RDW Coeff of Aminata (11.5-14.5) % Plt Count (130-400) K/uL MPV (9.4-12.4) fL Immature Gran % (Auto) % Neut % (Auto) % Lymph % (Auto) % [place] % (Auto) % Eos % (Auto) % Baso % (Auto) % Neut # (Auto) (1.40-6.50) K/uL Lymph # (Auto) (1.20-3.40) K/uL [place] # (Auto) (0.11-0.59) K/uL Eos # (Auto) (0.00-0.50) K/uL Baso # (Auto) (0.00-0.20) K/uL Immature Gran # (Auto) (0.01-0.20) K/uL Platelet Estimate (Normal) ESR 96 H (0-15) mm/hr PT INR APTT PTT Ratio Sodium (136-145) mmol/L Potassium Chloride (98-107) mmol/L Carbon Dioxide (21-32) mmol/L Anion Gap (3-11) BUN (6-23) mg/dl Creatinine (0.6-1.4) mg/dl Est Cr Clr Drug Dosing ml/min Est GFR ( Amer) ml/min Est GFR (Non-Af Amer) ml/min BUN/Creatinine Ratio (10-20) Glucose (70-99(Fasting)) mg/dl Calcium (8.6-10.3) mg/dl Magnesium (1.7-2.4) mg/dl Total Bilirubin (0.2-1.0) mg/dl AST ALT (7-52) U/L Alkaline Phosphatase (34-104) U/L Troponin I High Sens (0-20) pg/ml C-Reactive Protein (0-0.5) mg/dl Total Protein (6.0-8.3) gm/dl Albumin (3.4-5.0) gm/dl Globulin (2.5-4.0) gm/dl Albumin/Globulin Ratio (0.9-2) Procalcitonin (0-0.5) ng/ml Nasal Screen MRSA (PCR) (Negative) Adenovirus (PCR) Not Detected (NotDetected) B. pertussis DNA (PCR) Not Detected (NotDetected) B.parapertussis DNA PCR Not Detected (NotDetected) C. pneumoniae DNA (PCR) Not Detected (NotDetected) Coccidioides Ab (ID) Coronavirus OC43 (PCR) Not Detected (NotDetected) Coronavirus HKU1 (PCR) Not Detected (NotDetected) Coronavirus 229E (PCR) Not Detected (NotDetected) SARS-CoV-2 (PCR) Not Detected (NotDetected) Coronavirus NL63 (PCR) Not Detected (NotDetected) Cryptococcus Source Cryptococcal Ag (Latex) Human Metapneumovir PCR Not Detected (NotDetected) Influenza Type A (PCR) Not Detected (NotDetected) Influenza Type B (PCR) Not Detected (NotDetected) Urine Legionella Ag M. pneumoniae (PCR) Not Detected (NotDetected) Parainfluenza 1 (PCR) Not Detected (NotDetected) Parainfluenza 2 (PCR) Not Detected (NotDetected) Parainfluenza 3 (PCR) Not Detected (NotDetected) Parainfluenza 4 (PCR) Not Detected (NotDetected) RSV (PCR) Not Detected (NotDetected) Entero/Rhino (PCR) Not Detected (NotDetected) SARS-CoV-2, RNA, NAAT (NEGATIVE) TB Test (QFT) Gold Plus Pending TB Test (QFT) Nil Pending TB Test Mitogen - Nil Pending TB Test Ag - Nil 1 Pending TB Test Ag - Nil 2 Pending 03/22/23 03/22/23 03/22/23 Range/Units 14:14 14:07 13:57 WBC (4.8-10.8) K/ul RBC (4.70-6.10) M/uL Hgb (14.0-18.0) g/dl Hct (42.0-52.0) % MCV (80.0-100.0) fL MCH (25.0-34.0) pg MCHC (32.0-36.0) g/dL RDW Std Deviation (36.4-46.3) fL RDW Coeff of Aminata (11.5-14.5) % Plt Count (130-400) K/uL MPV (9.4-12.4) fL Immature Gran % (Auto) % Neut % (Auto) % Lymph % (Auto) % [place] % (Auto) % Eos % (Auto) % Baso % (Auto) % Neut # (Auto) (1.40-6.50) K/uL Lymph # (Auto) (1.20-3.40) K/uL [place] # (Auto) (0.11-0.59) K/uL Eos # (Auto) (0.00-0.50) K/uL Baso # (Auto) (0.00-0.20) K/uL Immature Gran # (Auto) (0.01-0.20) K/uL Platelet Estimate (Normal) ESR (0-15) mm/hr PT 11.3 INR 1.0 APTT 28.1 PTT Ratio 1.0 Sodium (136-145) mmol/L Potassium 3.9 Chloride (98-107) mmol/L Carbon Dioxide (21-32) mmol/L Anion Gap (3-11) BUN (6-23) mg/dl Creatinine (0.6-1.4) mg/dl Est Cr Clr Drug Dosing ml/min Est GFR ( Amer) ml/min Est GFR (Non-Af Amer) ml/min BUN/Creatinine Ratio (10-20) Glucose (70-99(Fasting)) mg/dl Calcium (8.6-10.3) mg/dl Magnesium (1.7-2.4) mg/dl Total Bilirubin (0.2-1.0) mg/dl AST 17 ALT (7-52) U/L Alkaline Phosphatase (34-104) U/L Troponin I High Sens (0-20) pg/ml C-Reactive Protein (0-0.5) mg/dl Total Protein (6.0-8.3) gm/dl Albumin (3.4-5.0) gm/dl Globulin (2.5-4.0) gm/dl Albumin/Globulin Ratio (0.9-2) Procalcitonin (0-0.5) ng/ml Nasal Screen MRSA (PCR) (Negative) Adenovirus (PCR) (NotDetected) B. pertussis DNA (PCR) (NotDetected) B.parapertussis DNA PCR (NotDetected) C. pneumoniae DNA (PCR) (NotDetected) Coccidioides Ab (ID) Coronavirus OC43 (PCR) (NotDetected) Coronavirus HKU1 (PCR) (NotDetected) Coronavirus 229E (PCR) (NotDetected) SARS-CoV-2 (PCR) (NotDetected) Coronavirus NL63 (PCR) (NotDetected) Cryptococcus Source Cryptococcal Ag (Latex) Human Metapneumovir PCR (NotDetected) Influenza Type A (PCR) (NotDetected) Influenza Type B (PCR) (NotDetected) Urine Legionella Ag M. pneumoniae (PCR) (NotDetected) Parainfluenza 1 (PCR) (NotDetected) Parainfluenza 2 (PCR) (NotDetected) Parainfluenza 3 (PCR) (NotDetected) Parainfluenza 4 (PCR) (NotDetected) RSV (PCR) (NotDetected) Entero/Rhino (PCR) (NotDetected) SARS-CoV-2, RNA, NAAT NEGATIVE (NEGATIVE) TB Test (QFT) Gold Plus TB Test (QFT) Nil TB Test Mitogen - Nil TB Test Ag - Nil 1 TB Test Ag - Nil 2 03/22/23 03/22/23 03/22/23 Range/Units 12:58 12:58 12:44 WBC 14.23 H (4.8-10.8) K/ul RBC 4.38 L (4.70-6.10) M/uL Hgb 11.9 L (14.0-18.0) g/dl Hct 35.5 L (42.0-52.0) % MCV 81.1 (80.0-100.0) fL MCH 27.2 (25.0-34.0) pg MCHC 33.5 (32.0-36.0) g/dL RDW Std Deviation 34.9 L (36.4-46.3) fL RDW Coeff of Aminata 11.9 (11.5-14.5) % Plt Count 413 H (130-400) K/uL MPV 10.7 (9.4-12.4) fL Immature Gran % (Auto) 0.4 % Neut % (Auto) 73.3 % Lymph % (Auto) 17.6 % [place] % (Auto) 7.1 % Eos % (Auto) 1.1 % Baso % (Auto) 0.5 % Neut # (Auto) 10.44 H (1.40-6.50) K/uL Lymph # (Auto) 2.50 (1.20-3.40) K/uL [place] # (Auto) 1.01 H (0.11-0.59) K/uL Eos # (Auto) 0.15 (0.00-0.50) K/uL Baso # (Auto) 0.07 (0.00-0.20) K/uL Immature Gran # (Auto) 0.06 (0.01-0.20) K/uL Platelet Estimate Increased H (Normal) ESR (0-15) mm/hr PT Cancelled INR Cancelled APTT Cancelled PTT Ratio Cancelled Sodium 133 L (136-145) mmol/L Potassium TNP Chloride 100 (98-107) mmol/L Carbon Dioxide 25 (21-32) mmol/L Anion Gap 8 (3-11) BUN 11 (6-23) mg/dl Creatinine 0.89 (0.6-1.4) mg/dl Est Cr Clr Drug Dosing 155.0 ml/min Est GFR ( Amer) 133.0 ml/min Est GFR (Non-Af Amer) 114.7 ml/min BUN/Creatinine Ratio 12.4 (10-20) Glucose 93 (70-99(Fasting)) mg/dl Calcium 9.3 (8.6-10.3) mg/dl Magnesium (1.7-2.4) mg/dl Total Bilirubin 0.4 (0.2-1.0) mg/dl AST TNP ALT 41 (7-52) U/L Alkaline Phosphatase 116 H (34-104) U/L Troponin I High Sens 5.0 (0-20) pg/ml C-Reactive Protein 10.62 H (0-0.5) mg/dl Total Protein 7.8 (6.0-8.3) gm/dl Albumin 3.9 (3.4-5.0) gm/dl Globulin 3.9 (2.5-4.0) gm/dl Albumin/Globulin Ratio 1.0 (0.9-2) Procalcitonin (0-0.5) ng/ml Nasal Screen MRSA (PCR) (Negative) Adenovirus (PCR) (NotDetected) B. pertussis DNA (PCR) (NotDetected) B.parapertussis DNA PCR (NotDetected) C. pneumoniae DNA (PCR) (NotDetected) Coccidioides Ab (ID) Coronavirus OC43 (PCR) (NotDetected) Coronavirus HKU1 (PCR) (NotDetected) Coronavirus 229E (PCR) (NotDetected) SARS-CoV-2 (PCR) (NotDetected) Coronavirus NL63 (PCR) (NotDetected) Cryptococcus Source Cryptococcal Ag (Latex) Human Metapneumovir PCR (NotDetected) Influenza Type A (PCR) (NotDetected) Influenza Type B (PCR) (NotDetected) Urine Legionella Ag M. pneumoniae (PCR) (NotDetected) Parainfluenza 1 (PCR) (NotDetected) Parainfluenza 2 (PCR) (NotDetected) Parainfluenza 3 (PCR) (NotDetected) Parainfluenza 4 (PCR) (NotDetected) RSV (PCR) (NotDetected) Entero/Rhino (PCR) (NotDetected) SARS-CoV-2, RNA, NAAT (NEGATIVE) TB Test (QFT) Gold Plus TB Test (QFT) Nil TB Test Mitogen - Nil TB Test Ag - Nil 1 TB Test Ag - Nil 2 Diagnostic Findings Chest X-Ray 03/22/23 12:44 SINGLE VIEW CHEST CLINICAL HISTORY: Atypical chest pain. FINDINGS: A PA chest radiograph is compared to study dated 01/21/2022. The cardiomediastinal silhouette is unremarkable. Left upper lobe consolidation is typical for pneumonia. The right lung appears clear. No large pleural effusion is seen. No pneumothorax is identify. The bony thorax is grossly intact. IMPRESSION: Left upper lobe consolidation is typical for pneumonia. Clinical correlation will be required and radiographic follow-up to resolution is recommended. ACT 112: Negative or not required by law. Electronically signed by: Kai Hernandez M.D. 03/22/2023 2:09 PM Chest CTA 03/22/23 13:22 CT ANGIOGRAM OF THE CHEST CLINICAL HISTORY: Atypical/left-sided chest pain. COMPARISON STUDY: Chest x-ray dated 04/01/2023. Chest CT dated 01/15/2019. TECHNIQUE: Following the IV administration of 150 cc of Optiray 350, CT angiogram of the chest was performed from the upper abdomen to the thoracic inlet utilizing the pulmonary embolus protocol. Images are reviewed in the axial, sagittal, and coronal planes. 3-D MIPS images are created and assessed. IV contrast was administered without complication. A dose lowering technique was utilized adhering to the principles of ALARA. CT DOSE: 837.75 mGy.cm FINDINGS: Thyroid: Imaged portions of the thyroid gland are normal in size and attenuation. Thoracic aorta: The thoracic aorta is normal in caliber and demonstrates 4- vessel variant arch anatomy. No dissection is seen. Pulmonary vasculature: The pulmonary trunk is normal in caliber. There are no filling defects identified in main, lobar, or segmental pulmonary branches to suggest pulmonary embolus. Heart: The heart is normal in size and without pericardial effusion. Lungs and pleural spaces: There is masslike consolidation in the left upper lobe with evidence of cavitation. Mild patchy consolidation is also seen in the superior segment of the left lower lobe just below the major fissure. The right lung is clear. No pleural effusion is identified. The trachea and central airways are patent. 3 mm right lower lobe pulmonary nodules on images #61 and #69 and at least 4 left lower lobe nodules measure up to 4 mm are unchanged and statistically of doubtful significance in this age group. Mediastinum: There is mediastinal lymphadenopathy. Prevascular nodes measure up to 13 mm in short axis. [place]: There are enlarged left hilar lymph nodes. These measure up to 15 mm in short axis. Axillae: There is no axillary lymphadenopathy. Upper abdomen: There is a small hiatal hernia. The spleen is enlarged measuring 14.5 cm in length. Skeletal structures: No lytic or blastic bony lesions are seen. IMPRESSION: 1. There is no evidence of pulmonary embolus in the main, lobar, or segmental pulmonary arteries. 2. Masslike consolidation in the left upper lobe with evidence of developing cavitation/necrosis. The appearance is typical for pneumonia, and there is also minimal consolidation in the left lower lobe. Clinical correlation will be required and radiographic follow-up to resolution is recommended. 3. Mildly enlarged mediastinal and left hilar lymph nodes are likely reactive. 4. Low suspicion pulmonary nodules measuring up to 4 mm have not significantly changed from 2019 and are statistically of doubtful significance in this age group. 5. The right lung is clear. No pleural effusion is identified. 6. Splenomegaly. 7. Additional findings as above. ACT 112: Negative or not required by law. Electronically signed by: Kai Hernandez M.D. 03/22/2023 3:14 PM PG Care Time/CCT Total # of Minutes Spent Total Time Spent with Patient: Total time spent is greater than 50% in coordination of care (as documented) at patient's floor/unit and/or counseling patient: Coding Level of Care Code 84456 SUB INP/OBS CARE 3/50MIN Diagnoses Necrotizing pneumonia J85.0 Hypertension I10 Hypertension type: essential hypertension Vitamin D deficiency E55.9 (2) Hypertension Hypertension type: essential hypertension Qualified Code(s): I10 - Essential (primary) hypertension
--- NOTE | 2023-03-23 07:47 | Pulmonary Consultation ---
Date of Consultation March 23, 2023 Assessment & Plan (1) Necrotizing pneumonia: (2) Abnormal CT scan of lung: Plan Impression: 33-year-old male with cavitary with airspace opacity in the posterior segment left upper lobe. This likely represents bacterial pneumonia but cannot rule out other etiologies. He is hemodynamically stable and stable from a respiratory standpoint. Recommendations: Continue respiratory isolation. QuantiFERON pending. We will check sputum AFB. If AFBs can be collected on 3 consecutive days and are negative, the patient can come out of isolation. We will also check cocci titers and cryptococcal antigen. Legionella pending. We will check urinary histo. 2. Continue Unasyn and azithromycin for now. Azithromycin can be decreased to 250 mg orally daily. 3. If the patient's QuantiFERON is negative, cultures are negative, and sputum AFB smears are negative on 3 consecutive days, could consider bronchoscopy at that point in time. Thanks for the opportunity of caring for this patient. Feel free to contact us with questions or concerns History of Present Illness Attending Physician: Valentin Ayala MD History of Present Illness Asked by hospitalist to evaluate this patient with an abnormal CT scan and hemoptysis. History is obtained from discussion with the patient as well as review the electronic medical record. Patient is a 33-year-old male non-smoker who reports about 5 or 6 days ago he developed some cough with blood-tinged phlegm. He had some subjective chills but no overt fevers. He was diagnosed with pneumonia last year and states the symptoms felt similar to that. He was seen in the emergency room where he had an abnormal chest x-ray and CT scan showing a cavitary process within the p osterior segment of the left upper lobe. He has been placed on isolation protocol and initiated on Unasyn and azithromycin. Cultures are pending. 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 He has no significant occupational exposures. No pertinent travel history. He denies any unintentional weight loss. He lives at home with his parents. They have dogs at home but no other exotic pets. No family history of lung disease. Allergies Allergy/AdvReac Type Severity Reaction Status Date / Time No Known Allergies Allergy Verified 03/22/23 15:03 Home Medications Medication Instructions Recorded Confirmed Type multivitamin 1 tab PO DAILY 01/25/19 03/22/23 History betamethasone dipropionate 0.05 % 1 applic topical BID PRN skin 08/23/22 03/22/23 Rx topical cream irritation #45 grams lisinopril 20 mg tablet 20 mg PO HS #90 tabs 03/19/23 03/22/23 Rx Patient History Medical History COVID-19 (01/2022) Dyslipidemia Fatty liver Hypertension Migraine headache Obesity (BMI 30-39.9) Pneumonia Prediabetes Tinnitus of left ear Vitamin D deficiency Surgical History H/O tooth extraction Family History Grandmother (Paternal) Ovarian cancer Father Hypertension Obstructive sleep apnea Mother No problems noted. Denies family history of Prostate cancer Myocardial infarction Breast cancer Colorectal cancer Social History Smoking Status: Never smoker Second Hand Exposure: No; Do You Dip or Chew Tobacco: No; Hx Alcohol Use: No Hx Substance Use: No Preferred Language: Hungarian Communication Ability: Effective Visual Impairment: No Limitations Hearing Ability: Normal Receipt And Report Clerk Required: No Beliefs That Will Affect Care: None marital status: Single Current Living Situation: Parent Current Living Situation Comment: With parents current occupational status: employed current occupation: Delivery w/ [employer] How many Children do You have: 0 Feels Safe at Home: Yes Childhood Exposure to Second-Hand Smoke: No Diet: regular Diet Comment: Regular caffeine: Yes during the past year weight has: remained stable Dental Care, Regularly: Yes Physical Activity Frequency: 1-2 Times per Week Physical Activity Frequency Comment: walks his dogs Seatbelt Use: always Sunscreen Use: Yes Assistive Devices: None Review of Systems Review of Systems: Please refer to admission H&P Physical Exam Constitutional: WD/WN, vitals as above Neck: trachea midline, no thyromegaly Respiratory: no respiratory distress, no labored breathing, no cough and not tachypneic Auscultation: + wheezes Faint inspiratory squeak in the posterior left upper lung field, otherwise clear to auscultation Cardiovascular: RRR, no murmur, no edema Gastrointestinal (Abdomen): normal bowel sounds, soft, nontender, no hepatosplenomegaly Musculoskeletal: Extremities: extremities normal to inspection Skin: no rashes, warm and dry Neurologic: Nonfocal exam Lymphatic: no cervical lymphadenopathy Results & Data Results & Data Vital Signs (Past 12 Hours) Vital Signs Temp Pulse Resp BP Pulse Ox O2 Del Method 03/22/23 22:21 36.9 C 77 18 117/71 96 Room Air Critical Care Results & Data Vital Signs (Past 12 Hours) Vital Signs Temp Pulse Resp BP Pulse Ox O2 Del Method 03/22/23 22:21 36.9 C 77 18 117/71 96 Room Air Lab & Micro Results (Past 24 Hours) RBC 4.38 M/uL (4.70-6.10) L 03/22/23 WBC 14.23 K/ul (4.8-10.8) H 03/22/23 Hgb 11.9 g/dl (14.0-18.0) L 03/22/23 Hct 35.5 % (42.0-52.0) L 03/22/23 MCV 81.1 fL (80.0-100.0) 03/22/23 MCH 27.2 pg (25.0-34.0) 03/22/23 MCHC 33.5 g/dL (32.0-36.0) 03/22/23 RDW Standard Deviation 34.9 fL (36.4-46.3) L 03/22/23 RDW Coefficient of Variation 11.9 % (11.5-14.5) 03/22/23 Plt Count 413 K/uL (130-400) H 03/22/23 MPV 10.7 fL (9.4-12.4) 03/22/23 Neutrophils (%) (Auto) 73.3 % 03/22/23 Lymphocytes (%) (Auto) 17.6 % 03/22/23 Monocytes # (Auto) 1.01 K/uL (0.11-0.59) H 03/22/23 Eosinophils # (Auto) 0.15 K/uL (0.00-0.50) 03/22/23 Immature Granulocyte % (Auto) 0.4 % 03/22/23 Neutrophils # (Auto) 10.44 K/uL (1.40-6.50) H 03/22/23 Lymphocytes # (Auto) 2.50 K/uL (1.20-3.40) 03/22/23 Monocytes # (Auto) 1.01 K/uL (0.11-0.59) H 03/22/23 Eosinophils # (Auto) 0.15 K/uL (0.00-0.50) 03/22/23 Basophils # (Auto) 0.07 K/uL (0.00-0.20) 03/22/23 Immature Granulocyte # (Auto) 0.06 K/uL (0.01-0.20) 3 Na 133 mmol/L (136-145) L 03/22/23 K 3.9 mmol/L (3.5-5.1) 03/22/23 Cl 100 mmol/L (98-107) 03/22/23 CO2 25 mmol/L (21-32) 03/22/23 Anion Gap 8 (3-11) 03/22/23 BUN 11 mg/dl (6-23) 03/22/23 Creatinine 0.89 mg/dl (0.6-1.4) 03/22/23 Estimated GFR ( Amer) 133.0 ml/min 03/22/23 Estimated GFR (Non-Af Amer) 114.7 ml/min 03/22/23 BUN/Creatinine Ratio 12.4 (10-20) 03/22/23 Glu 93 mg/dl (70-99(Fasting)) 03/22/23 Ca 9.3 mg/dl (8.6-10.3) 03/22/23 Total Bilirubin 0.4 mg/dl (0.2-1.0) 03/22/23 AST 17 U/L (13-39) 03/22/23 ALT 41 U/L (7-52) 03/22/23 Alkaline Phosphatase 116 U/L (34-104) H 03/22/23 TP 7.8 gm/dl (6.0-8.3) 03/22/23 Albumin 3.9 gm/dl (3.4-5.0) 03/22/23 Globulin 3.9 gm/dl (2.5-4.0) 03/22/23 Albumin/Globulin Ratio 1.0 (0.9-2) 03/22/23 Calcium Level 9.3 mg/dl (8.6-10.3) 03/22/23 12:44 Prothromb Time International Ratio 1.0 (0.9-1.1) 03/22/23 14:0 7 Microbiology 03/23/23 01:08 Gram Stain - Final Sputum, Expectorated Diagnostic Findings (Past 24 Hours) Chest X-Ray 03/22/23 12:44 SINGLE VIEW CHEST CLINICAL HISTORY: Atypical chest pain. FINDINGS: A PA chest radiograph is compared to study dated 01/21/2022. The cardiomediastinal silhouette is unremarkable. Left upper lobe consolidation is typical for pneumonia. The right lung appears clear. No large pleural effusion is seen. No pneumothorax is identify. The bony thorax is grossly intact. IMPRESSION: Left upper lobe consolidation is typical for pneumonia. Clinical correlation will be required and radiographic follow-up to resolution is recommended. ACT 112: Negative or not required by law. Electronically signed by: Kai Hernandez M.D. 03/22/2023 2:09 PM Chest CTA 03/22/23 13:22 CT ANGIOGRAM OF THE CHEST CLINICAL HISTORY: Atypical/left-sided chest pain. COMPARISON STUDY: Chest x-ray dated 04/01/2023. Chest CT dated 01/15/2019. TECHNIQUE: Following the IV administration of 150 cc of Optiray 350, CT angiogram of the chest was performed from the upper abdomen to the thoracic inlet utilizing the pulmonary embolus protocol. Images are reviewed in the axial, sagittal, and coronal planes. 3-D MIPS images are created and assessed. IV contrast was administered without complication. A dose lowering technique was utilized adhering to the principles of ALARA. CT DOSE: 837.75 mGy.cm FINDINGS: Thyroid: Imaged portions of the thyroid gland are normal in size and attenuation. Thoracic aorta: The thoracic aorta is normal in caliber and demonstrates 4- vessel variant arch anatomy. No dissection is seen. Pulmonary vasculature: The pulmonary trunk is normal in caliber. There are no filling defects identified in main, lobar, or segmental pulmonary branches to suggest pulmonary embolus. Heart: The heart is normal in size and without pericardial effusion. Lungs and pleural spaces: There is masslike consolidation in the left upper lobe with evidence of cavitation. Mild patchy consolidation is also seen in the superior segment of the left lower lobe just below the major fissure. The right lung is clear. No pleural effusion is identified. The trachea and central airways are patent. 3 mm right lower lobe pulmonary nodules on images #61 and #69 and at least 4 left lower lobe nodules measure up to 4 mm are unchanged and statistically of doubtful significance in this age group. Mediastinum: There is mediastinal lymphadenopathy. Prevascular nodes measure up to 13 mm in short axis. Maddison: There are enlarged left hilar lymph nodes. These measure up to 15 mm in short axis. Axillae: There is no axillary lymphadenopathy. Upper abdomen: There is a small hiatal hernia. The spleen is enlarged measuring 14.5 cm in length. Skeletal structures: No lytic or blastic bony lesions are seen. IMPRESSION: 1. There is no evidence of pulmonary embolus in the main, lobar, or segmental pulmonary arteries. 2. Masslike consolidation in the left upper lobe with evidence of developing cavitation/necrosis. The appearance is typical for pneumonia, and there is also minimal consolidation in the left lower lobe. Clinical correlation will be required and radiographic follow-up to resolution is recommended. 3. Mildly enlarged mediastinal and left hilar lymph nodes are likely reactive. 4. Low suspicion pulmonary nodules measuring up to 4 mm have not significantly changed from 2019 and are statistically of doubtful significance in this age group. 5. The right lung is clear. No pleural effusion is identified. 6. Splenomegaly. 7. Additional findings as above. ACT 112: Negative or not required by law. Electronically signed by: Kai Hernandez M.D. 03/22/2023 3:14 PM I & O Totals 24 Hours 03/22/23 03/23/23 03/24/23 06:59 06:59 06:59 Intake Total 1149 / 1149 Balance 1149 / 1149 Cumulative 03/22/23 12:35 thru 03/23/23 06:46 Intake Total 1149 Balance 1149 RT Ventilator Mngmt (Last Documented) Ventilator Ordered Settings Respiratory Rate 18 03/22/23 22:21 Ventilator - PT Measurements Respiratory Rate 18 PG Care Time/CCT Total # of Minutes Spent Total Time Spent with Patient: Total time spent is greater than 50% in coordination of care (as documented) at patient's floor/unit and/or counseling patient: Coding Level of Care Code 46639 IN/OBS CONSULT LVL 4,60M Diagnoses Necrotizing pneumonia J85.[address] scan of lung R91.8
[2023-03-23 08:25] LABS: Basophils # (auto) 0.04 K/uL (0.00-0.20); Basophils % (auto) 0.4 %; Eosinophils # (auto) 0.15 K/uL (0.00-0.50); Eosinophils % (auto) 1.6 %; Hematocrit (blood only) 35.9 % (42.0-52.0); Hemoglobin 11.6 g/dl (14.0-18.0); Immature Granulocytes # (auto) 0.05 K/uL (0.01-0.20); Immature Granulocytes % (auto) 0.5 %; Lymphocytes # (auto) 1.71 K/uL (1.20-3.40); Lymphocytes % (auto) 18.7 %; Mean Corpuscular Hemoglobin 26.8 pg (25.0-34.0); Mean Corpuscular Hgb Conc 32.3 g/dL (32.0-36.0); Mean Corpuscular Volume 82.9 fL (80.0-100.0); Mean Platelet Volume 10.2 fL (9.4-12.4); Monocytes % (auto) 7.7 %; Neutrophils % (auto) 71.1 %; Platelet Count 405 K/uL (130-400); RDW Coefficient of Variation 12.1 % (11.5-14.5); Red Blood Count 4.33 M/uL (4.70-6.10); White Blood Count 9.15 K/ul (4.8-10.8)
[2023-03-23 08:27] LABS: Albumin Globulin Ratio 0.9 (0.9-2); Albumin Level 3.7 gm/dl (3.4-5.0); BUN Creatinine Ratio 12.7 (10-20); Bilirubin,Total 0.4 mg/dl (0.2-1.0); Calcium 9.1 mg/dl (8.6-10.3); Creatinine Clr Calc Pharmacy 191.9 ml/min; Est GFR (African American) 144.9 ml/min; Magnesium 2.1 mg/dl (1.7-2.4); Potassium 4.1 mmol/L (3.5-5.1); Total Protein 7.7 gm/dl (6.0-8.3)
[2023-03-23] MEDS: BENZONATATE 100 MG CAPSULE PO SCH ×3 (08:39→20:03)
[2023-03-23] MEDS ORDERED: AZITHROMYCIN 500 MG in DEXTROSE 5% 250 ML IV SCH (09:00)
--- NOTE | 2023-03-23 09:14 | Electrocardiogram Report ---
Test Reason : Blood Pressure : / mmHG Vent. Rate : 096 BPM Atrial Rate : 096 BPM P-R Int : 160 ms QRS Dur : 094 ms QT Int : 348 ms P-R-T Axes : 034 060 022 degrees QTc Int : 439 ms Normal sinus rhythm Normal ECG When compared with ECG of 15-JAN-2019 15:57, No significant change was found Confirmed by Hitesh Dias ([id number]) on 03/23/2023 9:13:48 AM Referred By: Confirmed By:Hitesh Dias
[2023-03-23] MEDS: AZITHROMYCIN 250 MG TAB PO SCH (09:27)
[2023-03-23] MEDS: CHOLECALCIFEROL 5,000 UNITS 125 MCG TAB PO SCH (09:28)
[2023-03-23] MEDS: ENOXAPARIN INJ 40 MG/0.4 ML SYR SQ SCH (20:02)
[2023-03-23] MEDS: lisinopril 20 MG TAB PO SCH (20:03)
[2023-03-24] MEDS: AMPICILLIN/SULBACTAM SOD 3,000 MG in 0.9 % SODIUM CHLORIDE 100 ML IV SCH ×3 (01:44→13:33)
[2023-03-24 06:15] LABS: Basophils # (auto) 0.04 K/uL (0.00-0.20); Basophils % (auto) 0.5 %; Eosinophils # (auto) 0.31 K/uL (0.00-0.50); Eosinophils % (auto) 3.5 %; Hematocrit (blood only) 38.5 % (42.0-52.0); Hemoglobin 12.4 g/dl (14.0-18.0); Immature Granulocytes # (auto) 0.04 K/uL (0.01-0.20); Immature Granulocytes % (auto) 0.5 %; Lymphocytes # (auto) 1.93 K/uL (1.20-3.40); Lymphocytes % (auto) 21.9 %; Mean Corpuscular Hemoglobin 26.8 pg (25.0-34.0); Mean Corpuscular Hgb Conc 32.2 g/dL (32.0-36.0); Mean Corpuscular Volume 83.3 fL (80.0-100.0); Monocytes # (auto) 0.62 K/uL (0.11-0.59); Neutrophils # (auto) 5.87 K/uL (1.40-6.50); Neutrophils % (auto) 66.6 %; Platelet Count 439 K/uL (130-400); RDW Standard Deviation 36.5 fL (36.4-46.3); Red Blood Count 4.62 M/uL (4.70-6.10); White Blood Count 8.81 K/ul (4.8-10.8)
[2023-03-24 06:32] LABS: BUN Creatinine Ratio 12.9 (10-20); Creatinine Clr Calc Pharmacy 160.3 ml/min; Est GFR (African American) 134.6 ml/min; Est GFR (Non-African American) 116.1 ml/min; Potassium 4.4 mmol/L (3.5-5.1)
[2023-03-24] MEDS: CHOLECALCIFEROL 5,000 UNITS 125 MCG TAB PO SCH (08:03)
[2023-03-24] MEDS: BENZONATATE 100 MG CAPSULE PO SCH ×2 (08:03→14:14)
[2023-03-24] MEDS: AZITHROMYCIN 250 MG TAB PO SCH (08:04)
--- NOTE | 2023-03-24 08:15 | Hospitalist Progress Note ---
Date of Service March 24, 2023 Assessment & Plan (1) Necrotizing pneumonia: Plan: 32yo male with ongoing cough and hemoptysis for past 5-6 days with chills but no fevers. Reports chronic dry cough for years Had PNA last year with similar symptoms. No occupation exposure/travel history/unintentional weight loss/night sweats, incarceration/group living, non- smoker. ?CAP, strep pneumonia? ESR 96, CRP 10.62 WBC 14.2k on admission, no fever CXR w/ Left upper lobe consolidation is typical for pneumonia CT chest NEGATIVE for PE * Noting Masslike consolidation in the left upper lobe with evidence of developing cavitation/necrosis. The appearance is typical for pneumonia, and there is also minimal consolidation in the left lower lobe. Clinical correlation will be required and radiographic follow-up to resolution is recommended. Mildly enlarged mediastinal and left hilar lymph nodes are likely reactive. Low suspicion pulmonary nodules measuring up to 4 mm have not significantly changed from 2019 and are statistically of doubtful significance in this age group. Continues on Unasyn/Azithromycin Azithromycin decreased to 250mg daily per pulmonology Blood cultures NGTD, afebrile Legionella pending Sputum cx moderate normal marino on preliminary -- monitor final Pulmonology consulted, recs as below: * Continue respiratory isolation, airborne * QuantiFERON pending. * Sputum AFB pending, repeating daily * --> If AFBs can be collected on 3 consecutive days and are negative, the patient can come out of isolation. Day 2 today, collected this morning * Cocci titers and cryptococcal antigen pending If the patient's QuantiFERON is negative, cultures are negative, and sputum AFB smears are negative on 3 consecutive days, could consider bronchoscopy at that point in time. Supportive care Antipyretics, antiemetics prn Lovenox SQ for DVT prophylaxis 03/24--> Patient feeling well, wanting to see about possible discharge. Per pulm, need negative quant gold, per lab will likely be back in next 24 hours. Will plan to dc on Augmentin to complete 10 day course tomorrow. Needs repeat CXR in 2-3 weeks, CT chest 10-12 weeks Monitor labs on repeat (2) Hypertension: Plan: Chronic. COntrolled Elevated on admission, recent switch by PCP from lisinopril to losartan for concerns for cough (did not start) Given cough likely from above, resumed prior lisinopril BP stable 119/77 this morning and monitoring (3) Vitamin D deficiency: Plan: lwo on outpatient labs, replacement ordered f/u pcp Plan continued inpatient stay but hopeful discharge early AM tomorrow if quantiferon gold back and negative and will plan to discharge on PO Augmentin to complete 10 day course Needs repeat CXR in 2-3 weeks, CT chest 10-12 weeks Admission and Anticipated Discharge Date Admission Date: March 23, 2023 Supervising Physician Co-Signing Physician Notes The patient was not seen by me. The chart was reviewed. Case discussed with LUIS DANIEL Agarwal. Agree with assessment and plan Subjective Eval this morning, family at bedside. Feeling well. Was hoping to go home today. Discussed AFB x 3 days but will discuss possible dc w/ pulmonology who patient states was by this morning. Continued clear/white sputum, no further blood tinge. Discussed w/ maeve Grigsby to call lab for quant gold. if negative, can dc on PO augmentin. Lab reports will be within 24 hours. Will plan for dc tomorrow. Physical Exam Physical Exam: General: WN/WD male sitting up in bed, NAD, family at bedside HEENT: head normocephalic, atraumatic, mmm trachea midline Resp[: no distress, respirations even/unlabored, no cough/tachypnea, sputum on bedside table without blood, faint inspiratory wheeze MARNIE, no crackles/rales, 97% on RA CV: RRR, no significant m/r/g, no pitting edema/calf tenderness GI: +BS, soft/NT : no fatima MSK/Neuro: no focal deficit, no slurred speech, strength equal throughout, follows commands Psych: AOx3, pleasant and cooperative with exam Results & Data Results & Data Vital Signs (Past 12 Hours) Vital Signs Temp Pulse Resp BP Pulse Ox O2 Del Method 03/24/23 07:48 36.6 C 77 20 119/77 97 Room Air Laboratory Results 03/24/23 03/24/23 Range/Units 05:33 05:33 WBC 8.81 (4.8-10.8) K/ul RBC 4.62 L (4.70-6.10) M/uL Hgb 12.4 L (14.0-18.0) g/dl Hct 38.5 L (42.0-52.0) % MCV 83.3 (80.0-100.0) fL MCH 26.8 (25.0-34.0) pg MCHC 32.2 (32.0-36.0) g/dL RDW Std Deviation 36.5 (36.4-46.3) fL RDW Coeff of Aminata 12.0 (11.5-14.5) % Plt Count 439 H (130-400) K/uL MPV 10.0 (9.4-12.4) fL Immature Gran % (Auto) 0.5 % Neut % (Auto) 66.6 % Lymph % (Auto) 21.9 % Peach % (Auto) 7.0 % Eos % (Auto) 3.5 % Baso % (Auto) 0.5 % Neut # (Auto) 5.87 (1.40-6.50) K/uL Lymph # (Auto) 1.93 (1.20-3.40) K/uL Peach # (Auto) 0.62 H (0.11-0.59) K/uL Eos # (Auto) 0.31 (0.00-0.50) K/uL Baso # (Auto) 0.04 (0.00-0.20) K/uL Immature Gran # (Auto) 0.04 (0.01-0.20) K/uL Sodium 139 (136-145) mmol/L Potassium 4.4 (3.5-5.1) mmol/L Chloride 105 (98-107) mmol/L Carbon Dioxide 29 (21-32) mmol/L Anion Gap 5 (3-11) BUN 11 (6-23) mg/dl Creatinine 0.85 (0.6-1.4) mg/dl Est Cr Clr Drug Dosing 160.3 ml/min Est GFR ( Amer) 134.6 ml/min Est GFR (Non-Af Amer) 116.1 ml/min BUN/Creatinine Ratio 12.9 (10-20) Glucose 109 H (70-99(Fasting)) mg/dl Calcium 9.0 (8.6-10.3) mg/dl PG Care Time/CCT Total # of Minutes Spent Total Time Spent with Patient: Total time spent is greater than 50% in coordination of care (as documented) at patient's floor/unit and/or counseling patient: Coding Level of Care Code 11235 SUB INP/OBS CARE MIN Diagnoses Necrotizing pneumonia J85.0 Hypertension I10 Hypertension type: essential hypertension Vitamin D deficiency E55.9 (2) Hypertension Hypertension type: essential hypertension Qualified Code(s): I10 - Essential (primary) hypertension
--- NOTE | 2023-03-24 08:48 | Pulmonology Progress Note ---
Date of Service March 24, 2023 Assessment & Plan (1) Necrotizing pneumonia: (2) Abnormal CT scan of lung: Plan Impression: 33-year-old male with cavitary with airspace opacity in the posterior segment left upper lobe. This likely represents bacterial pneumonia but cannot rule out other etiologies. He is hemodynamically stable and stable from a respiratory standpoint. Recommendations: 1. Cavitary upper lobe lesion. Suspect pneumonia. QuantiFERON pending. Sputum AFBs negative. If his QuantiFERON is negative, I think the patient can likely be dismissed from the hospital on oral Augmentin for 10 days with a follow-up chest x-ray in 2 to 3 weeks. He will likely require a follow-up CT scan in 10 to 12 weeks. Recommend collection of daily AFB smears while the leslie ent is inpatient 2. Hemoptysis: Resolved Weight: If you are on. If results are negative, the patient can be dismissed from the hospital Admission and Anticipated Discharge Date Admission Date: March 23, 2023 Subjective Patient seen and examined. EMR reviewed. The patient states he is feeling well. He is not having any additional cough or hemoptysis. He denies chest pain or palpitations. No fevers chills or night sweats. He is tolerating a diet. He is anxious to be dismissed from the hospital. Review of Systems Review of Systems: All systems reviewed & are unremarkable except as noted in Subjective Physical Exam Constitutional: WD/WN, vitals as above Neck: trachea midline, no thyromegaly Respiratory: no respiratory distress, no labored breathing, no cough and not tachypneic Auscultation: + wheezes Cardiovascular: RRR, no murmur, no edema Gastrointestinal (Abdomen): normal bowel sounds, soft, nontender, no hepatosplenomegaly Musculoskeletal: Extremities: extremities normal to inspection Skin: no rashes, warm and dry Lymphatic: no cervical lymphadenopathy Results & Data Results & Data Vital Signs (Past 12 Hours) Vital Signs Temp Pulse Resp BP Pulse Ox O2 Del Method 03/24/23 07:48 36.6 C 77 20 119/77 97 Room Air Laboratory Results 03/24/23 05:33 03/24/23 05:33 PG Care Time/CCT Total # of Minutes Spent Total Time Spent with Patient: Total time spent is greater than 50% in coordination of care (as documented) at patient's floor/unit and/or counseling patient: Coding Level of Care Code 33172 SUB INP/OBS CARE 235MIN Diagnoses Necrotizing pneumonia J85.[address] scan of lung R91.8
--- NOTE | 2023-03-24 15:18 | Discharge Summary ---
Date of Service March 24, 2023 Admission HPI Per Admitting Provider David Gordon is a 32 you male with history of HTN, HLP presenting with cough and hemoptysis. Patient has had ongoing cough for several weeks. This week he noted worsening cough with increase in sputum production with blood tinged sputum. He has not had documented fever but has had chills and night sweats ans well as some inspiratory pain in his left upper lung posteriorly. He denies chest pain, nausea, vomiting, diarrhea or urinary complaints. No preceding URI symptoms reported. He is a lifelong nonsmoker. No recent dental work Did have pneumonia in January 2019 - presented to the ER at that time with cough and hemoptysis. He was discharged home on Azithromycin and Cefdinir at that time and reports that his symptoms resolved. Patient with no history of homelessness, incarceration or living in a longterm setting. No close contact with an persons with known Tuberculosis. He does spend a lot of time in his basement which he reports is musty and moldy smelling at times. In the ER he is afebrile, HD stable Adequate oxygenation on room air with no tachypnea ER Course: Azithromycin Ceftriaxone Admission Exam Per Admitting Provider General: patient resting comfortably, NAD, non-toxic in appearance, AA&O x 4 Skin: warm, dry, intact, no rashes or lesions HEENT: NC/AT, PERRL, EOMI, anicteric sclera, conjunctiva without injection, external ear normal to inspection and nontender, nares patent, moist mucus membranes, dentition intact, no oropharyngeal lesions, neck supple, trachea midline, no LAD, no thyromegaly, no JVD Heart: +S1/S2, regular, no m/r/g Lungs: equal air entry bilaterally, no rales/rhonchi/wheezes Abd: +BS, soft, NT/ND, no masses/organomegaly/ascites Ext: warm, 2+ pulses in UE/LE bilaterally, no clubbing/cyanosis or edema Neuro: nonfocal, patient AA&O x 4, speech intact, no facial droop, moving all extremities on command with equal strength 5/5 Principal Diagnosis Necrotizing Pneumonia Discharge Exam General: WN/WD male sitting up in bed, NAD, family at bedside HEENT: head normocephalic, atraumatic, mmm trachea midline Resp[: no distress, respirations even/unlabored, no cough/tachypnea, sputum on bedside table without blood, faint inspiratory wheeze MARNIE, no crackles/rales, 97% on RA CV: RRR, no significant m/r/g, no pitting edema/calf tenderness GI: +BS, soft/NT : no faitma MSK/Neuro: no focal deficit, no slurred speech, strength equal throughout, follows commands Psych: AOx3, pleasant and cooperative with exam Discharge Data Allergies Allergy/AdvReac Type Severity Reaction Status Date / Time No Known Allergies Allergy Verified 03/22/23 15:03 Consultations 03/22/23 15:16 ED Decision to Admit Stat 03/22/23 18:01 Consult Pulmonology Routine Ordered Studies Chest X-Ray 03/22/23 12:44 SINGLE VIEW CHEST CLINICAL HISTORY: Atypical chest pain. FINDINGS: A PA chest radiograph is compared to study dated 01/21/2022. The cardiomediastinal silhouette is unremarkable. Left upper lobe consolidation is typical for pneumonia. The right lung appears clear. No large pleural effusion is seen. No pneumothorax is identify. The bony thorax is grossly intact. IMPRESSION: Left upper lobe consolidation is typical for pneumonia. Clinical correlation will be required and radiographic follow-up to resolution is recommended. ACT 112: Negative or not required by law. Electronically signed by: Kai Hernandez M.D. 03/22/2023 2:09 PM Chest CTA 03/22/23 13:22 CT ANGIOGRAM OF THE CHEST CLINICAL HISTORY: Atypical/left-sided chest pain. COMPARISON STUDY: Chest x-ray dated 04/01/2023. Chest CT dated 01/15/2019. TECHNIQUE: Following the IV administration of 150 cc of Optiray 350, CT angiogram of the chest was performed from the upper abdomen to the thoracic inlet utilizing the pulmonary embolus protocol. Images are reviewed in the axial, sagittal, and coronal planes. 3-D MIPS images are created and assessed. IV contrast was administered without complication. A dose lowering technique was utilized adhering to the principles of ALARA. CT DOSE: 837.75 mGy.cm FINDINGS: Thyroid: Imaged portions of the thyroid gland are normal in size and attenuation. Thoracic aorta: The thoracic aorta is normal in caliber and demonstrates 4- vessel variant arch anatomy. No dissection is seen. Pulmonary vasculature: The pulmonary trunk is normal in caliber. There are no filling defects identified in main, lobar, or segmental pulmonary branches to suggest pulmonary embolus. Heart: The heart is normal in size and without pericardial effusion. Lungs and pleural spaces: There is masslike consolidation in the left upper lobe with evidence of cavitation. Mild patchy consolidation is also seen in the superior segment of the left lower lobe just below the major fissure. The right lung is clear. No pleural effusion is identified. The trachea and central airways are patent. 3 mm right lower lobe pulmonary nodules on images #61 and #69 and at least 4 left lower lobe nodules measure up to 4 mm are unchanged and statistically of doubtful significance in this age group. Mediastinum: There is mediastinal lymphadenopathy. Prevascular nodes measure up to 13 mm in short axis. Maddison: There are enlarged left hilar lymph nodes. These measure up to 15 mm in short axis. Axillae: There is no axillary lymphadenopathy. Upper abdomen: There is a small hiatal hernia. The spleen is enlarged measuring 14.5 cm in length. Skeletal structures: No lytic or blastic bony lesions are seen. IMPRESSION: 1. There is no evidence of pulmonary embolus in the main, lobar, or segmental pulmonary arteries. 2. Masslike consolidation in the left upper lobe with evidence of developing cavitation/necrosis. The appearance is typical for pneumonia, and there is also minimal consolidation in the left lower lobe. Clinical correlation will be required and radiographic follow-up to resolution is recommended. 3. Mildly enlarged mediastinal and left hilar lymph nodes are likely reactive. 4. Low suspicion pulmonary nodules measuring up to 4 mm have not significantly changed from 2019 and are statistically of doubtful significance in this age group. 5. The right lung is clear. No pleural effusion is identified. 6. Splenomegaly. 7. Additional findings as above. ACT 112: Negative or not required by law. Electronically signed by: Kai Hernandez M.D. 03/22/2023 3:14 PM Hospital Course (1) Necrotizing pneumonia: 32yo male with ongoing cough and hemoptysis for past 5-6 days with chills but no fevers. Reports chronic dry cough for years Had PNA last year with similar symptoms. No occupation exposure/travel history/unintentional weight loss/night sweats, incarceration/group living, non- smoker. ?CAP, strep pneumonia? ESR 96, CRP 10.62 WBC 14.2k CXR w/ Left upper lobe consolidation is typical for pneumonia CT chest NEGATIVE for PE * Noting Masslike consolidation in the left upper lobe with evidence of developing cavitation/necrosis. The appearance is typical for pneumonia, and there is also minimal consolidation in the left lower lobe. Clinical correlation will be required and radiographic follow-up to resolution is recommended. Mildly enlarged mediastinal and left hilar lymph nodes are likely reactive. Low suspicion pulmonary nodules measuring up to 4 mm have not significantly changed from 2019 and are statistically of doubtful significance in this age group. Airborne precautions while inpatient Unasyn/Azithromycin while inpatient Blood cultures NGTD Initial AFB sputum negative, repeat pending Quantiferon gold pending, cocci titers/cryptococcal antigen, legionella pending Pulmonology consulted while inpatient Sputum cx mod normal marino on prelim -- final pending at discharge Supportive care, no further hemoptysis Lovenox SQ while inpatient for DVT prophylaxis Patient had been wanting to go home since Friday, no hypoxia/further hemoptysis. Discussed w/ pulmonology, Dr Santos, and if I am able to f/u on quantiferon gold testing tomorrow and patient able to isolate at home in the meantime can discharge to complete course of Augmentin x 10 days. I will call him tomorrow with results. To remain OFF work int he meantime, work note provided. Needs repeat CXR in 2-3 weeks, CT chest 10-12 weeks (2) Hypertension: Chronic. COntrolled Elevated on admission, recent switch by PCP from lisinopril to losartan for concerns for cough (did not start) Given cough likely from above, resumed prior lisinopril and continued at discharge (3) Vitamin D deficiency: lwo on outpatient labs, replacement ordered and continued at discharge f/u pcp Plan discharged home, to continue isolation until quantiferon gold testing resulted (hopefully by tomorrow per discussion with lab) Augmentin at dc to complete 10 day course Outpt f/u for labs pending at discharge Needs repeat CXR in 2-3 weeks, CT chest 10-12 weeks which can be arranged and ordered by primary care provider/pulmology in follow-up Total Time Total Time Spent Total Time Spent (In Minutes): 45 Discharge Plan Discharge Items Patient Disposition: Home - Self-Care Reason For Visit: PNEUMONIA, CAVITARY LESION Discharge Diagnosis: Pneumonia Goals: You have been hospitalized for an acute medical problem. During your stay at [facility], we have made an effort to correct the problem that brought you to the hospital while keeping you as comfortable as possible. Medications were used to bring your condition under control and your discharge instructions will include directions for any medications you should take after leaving the hospital. Please make sure you see your Primary Care Provider as part of your follow up plan. Activity: As commented below Non-emergency contact: Primary Care Provider and Mapping Specialist Call non-emergency contact if: you have any medication questions, your symptoms worsen and you have a fever Follow-up/Referrals: Marie Esparza DO [Primary Care Provider] - 04/03/23 10:30 am (APPOINTMENT WITH [facility] DE [facility]) Nimesh Santos MD [Physician] - (OFFICE WILL CONTACT YOU TO SCHEDULE) Diet: Heart Healthy Addtl Attending Provider Instructions: You have been hospitalized for pneumonia and blood in sputum. Imaging was negative for blood clots thankfully. Pulmonology was consulted and you were given IV antibiotics and sputum collections were obtained. Quantiferon gold testing was obtained to rule out tuberculosis and fungal testing is pending at discharge. You should SELF ISOLATE UNTIL THIS QUANTIFERON GOLD TESTING IS RESULTED AND I WILL CALL YOU TOMORROW TO SEE ABOUT REMOVING THIS PRECAUTION. You should continue and complete the course of antibiotics for the pneumonia with Augmentin. This is taken twice daily. Please complete the full course. You should have repeat chest xray in 2-3 weeks to ensure you are continuing to have improvement on imaging and have a repeat CT scan of the chest in 10-12 week. Please follow up with primary are provider in the next 7-10 days to monitor your progress. You can have pulmonology follow up as well for follow up on these imaging if you require further testing for investigation with a procedure called a bronchoscopy where they go down with a camera and can take samples that way as well. You should return to the ER with any worsening cough/sputum production/blood in sputum, shortness of breath, chest pain or for any other symptoms concerning for you. It has been a pleasure being a part of the medical team providing for you while you have been in the hospital. Take care! Pending Studies at Discharge: Yes Studies:: Blood cultures -- no growth to date AFB sputum culture -- pending Sputum culture -- moderate normal marino on preliminary testing Stand-Alone Forms: My [facility], Work/School Release, Smoking Cessation Medications and DC Order Prescriptions: New cholecalciferol (vitamin D3) 125 mcg (5,000 unit) Tablet 5,000 unit PO QAM Qty: 30 0RF amoxicillin-pot clavulanate 875-125 mg tablet 1 tab PO BID 8 Days Qty: 16 0RF Continued lisinopril 20 mg tablet 20 mg PO HS Qty: 90 1RF multivitamin tablet 1 tab PO DAILY betamethasone dipropionate 0.05 % cream 1 applic topical BID PRN (Reason: skin irritation) Qty: 45 0RF Discharge Orders: Discharge Order (Routine); Ordered 03/24/23 Ordered By: Cathie Dela Cruz/Other Patient Handouts: Tuberculosis (TB) Admission Data Admit Date/Time: 03/23/23 12:28 Attending Provider: Valentin Ayala Admit Provider: Christal Moreno Primary Care Provider: Marie Esparza Other Providers: Ravinder Pastor ; Nimesh Santos Other Interventions: Discharge Summary Assessment (RN) Last Done: 03/24/23 15:26 Supervising Physician Co-Signing Physician Notes the patient was not seen by me. The chart was reviewed. Case discussed with LUIS DANIEL Agarwal. Agree with assessment and plan. Coding Level of Care Code 75481 INP/OBS DISCH >30 MIN Diagnoses Necrotizing pneumonia J85.0 Hypertension I10 Hypertension type: essential hypertension Vitamin D deficiency E55.9
[2023-03-25 16:34] LABS: Quantiferon Mitogen-NIL 9.58 IU/mL; Quantiferon NIL 0.01 IU/mL; Quantiferon TB Gold Plus NEGATIVE (NEGATIVE); Quantiferon TB2-NIL 0.01 IU/mL
--- NOTE | 2023-03-28 13:45 | Coding Query ---
CODING QUERY To promote full compliance with coding requirements relating to patient care, provider participation is requested in all cases of collections rep uncertainty. Please assist us with the question(s) below: Coding Question(s): The Discharge Summary documents, "Quantiferon gold testing was obtained to rule out tuberculosis and fungal testing is pending at discharge". Please specify below, in your clinical opinion, regarding tuberculosis: ( ) Possible Tuberculosis was treated/monitored during this admission ( ) Possible Tuberculosis was Not treated/monitored during this admission, or is Ruled-Out Physician's Response(s): Cathie Lopez patient Thank you Francia Washburn Principal Diagnosis: "that condition established after study, to be chiefly responsible for occasioning the admission of the patient to the hospital for care." Co-Existing Principal Diagnosis: "when two or more diagnoses equally meet the criteria for principal diagnosis as determined by the circumstances of admission, diagnostic work up, and/or therapy provided, and the Alphabetic Index, Tabular List, or another coding guideline does not provide sequencing direction, any one of the diagnoses may be sequenced first." "When the physician has documented what appears to be a current diagnosis in the body of the record, but has not included the diagnosis in the final diagnostic statement, the physician should be asked whether the diagnosis should be added." ([facility] 2 QTR90. p3-4) BAILEY
--- NOTE | 2023-03-28 14:03 | Coding Query ---
CODING QUERY To promote full compliance with coding requirements relating to patient care, provider participation is requested in all cases of farmer diversified crops uncertainty. Please assist us with the question(s) below: Coding Question(s): There is documentation in the record and on Discharge Summary of, " Necrotizing pneumonia: 32yo male with ongoing cough and hemoptysis for past 5-6 days with chills but no fevers. Reports chronic dry cough for years Had PNA last year with similar symptoms. No occupation exposure/travel history/unintentional weight loss/night sweats, incarceration/group living, non- smoker. ?CAP, strep pneumonia? ESR 96, CRP 10.62", and the Pulmonary Consult on 03/23 and Pulmonary Progress Note on 03/24 document, "(1) Necrotizing pneumonia: (2) Abnormal CT scan of lung: Plan Impression: 33-year-old male with cavitary with airspace opacity in the posterior segment left upper lobe. This likely represents bacterial pneumonia but cannot rule out other etiologies.". Please specify below, in your clinical opinion, regarding the documentation of ?CAP, ? Strep Pneumonia, likely Bacterial Pneumonia: ( ) Most likely Possible Bacterial Pneumonia, Unspecified ( ) Most likely Possible Bacterial Pneumonia, Possibly due to Strep ( ) Most likely Possible CAP without possible Bacterial or Strep Pneumonia ( ) Other Pneumonia: Please Specify Physician's Response(s): Cathie Lopez patient Thank you Francia Washburn Principal Diagnosis: "that condition established after study, to be chiefly responsible for occasioning the admission of the patient to the hospital for care." Co-Existing Principal Diagnosis: "when two or more diagnoses equally meet the criteria for principal diagnosis as determined by the circumstances of admission, diagnostic work up, and/or therapy provided, and the Alphabetic Index, Tabular List, or another coding guideline does not provide sequencing direction, any one of the diagnoses may be sequenced first." "When the physician has documented what appears to be a current diagnosis in the body of the record, but has not included the diagnosis in the final diagnostic statement, the physician should be asked whether the diagnosis should be added." (Source [facility]oding [facility] 2 QTR90. p3-4) BAILEY
[2023-03-28 18:52] LABS: Coccidioides Ab, ID Negative (Negative); Cryptococcal Antigen Not Detected (Not Detected); Source Serum
--- NOTE | 2023-03-31 09:05 | Coding Query ---
CODING QUERY To promote full compliance with coding requirements relating to patient care, provider participation is requested in all cases of label coder uncertainty. Please assist us with the question(s) below: Coding Question(s): The Discharge Summary documents, "Quantiferon gold testing was obtained to rule out tuberculosis and fungal testing is pending at discharge". Please specify below, in your clinical opinion, regarding tuberculosis: ( x) Possible Tuberculosis was treated/monitored during this admission ( ) Possible Tuberculosis was Not treated/monitored during this admission, or is Ruled-Out Physician's Response(s): monitored but not treated, quantiferon gold testing resulted as NEGATIVE, but patient was on isolation in negative pressure room during inpatient stay and was to isolate at home until called with results. Thank you Francia Washburn Principal Diagnosis: "that condition established after study, to be chiefly responsible for occasioning the admission of the patient to the hospital for care." Co-Existing Principal Diagnosis: "when two or more diagnoses equally meet the criteria for principal diagnosis as determined by the circumstances of admission, diagnostic work up, and/or therapy provided, and the Alphabetic Index, Tabular List, or another coding guideline does not provide sequencing direction, any one of the diagnoses may be sequenced first." "When the physician has documented what appears to be a current diagnosis in the body of the record, but has not included the diagnosis in the final diagnostic statement, the physician should be asked whether the diagnosis should be added." (Source [facility]oding [facility] 2 QTR90. p3-4) BAILEY
--- NOTE | 2023-03-31 09:06 | Coding Query ---
CODING QUERY To promote full compliance with coding requirements relating to patient care, provider participation is requested in all cases of derrick builder uncertainty. Please assist us with the question(s) below: Coding Question(s): There is documentation in the record and on Discharge Summary of, " Necrotizing pneumonia: 32yo male with ongoing cough and hemoptysis for past 5-6 days with chills but no fevers. Reports chronic dry cough for years Had PNA last year with similar symptoms. No occupation exposure/travel history/unintentional weight loss/night sweats, incarceration/group living, non- smoker. ?CAP, strep pneumonia? ESR 96, CRP 10.62", and the Pulmonary Consult on 03/23 and Pulmonary Progress Note on 03/24 document, "(1) Necrotizing pneumonia: (2) Abnormal CT scan of lung: Plan Impression: 33-year-old male with cavitary with airspace opacity in the posterior segment left upper lobe. This likely represents bacterial pneumonia but cannot rule out other etiologies.". Please specify below, in your clinical opinion, regarding the documentation of ?CAP, ? Strep Pneumonia, likely Bacterial Pneumonia: ( x ) Most likely Possible Bacterial Pneumonia, Unspecified ( ) Most likely Possible Bacterial Pneumonia, Possibly due to Strep ( ) Most likely Possible CAP without possible Bacterial or Strep Pneumonia ( ) Other Pneumonia: Please Specify Physician's Response(s): Thank you Francia Washburn Principal Diagnosis: "that condition established after study, to be chiefly responsible for occasioning the admission of the patient to the hospital for care." Co-Existing Principal Diagnosis: "when two or more diagnoses equally meet the criteria for principal diagnosis as determined by the circumstances of admission, diagnostic work up, and/or therapy provided, and the Alphabetic Index, Tabular List, or another coding guideline does not provide sequencing direction, any one of the diagnoses may be sequenced first." "When the physician has documented what appears to be a current diagnosis in the body of the record, but has not included the diagnosis in the final diagnostic statement, the physician should be asked whether the diagnosis should be added." (Source [facility]oding [facility] 2 QTR90. p3-4) BAILEY
--- NOTE | 2023-04-10 12:06 | Coding Query ---
CODING QUERY To promote full compliance with coding requirements relating to patient care, provider participation is requested in all cases of medical insurance coder uncertainty. Please assist us with the question(s) below: Coding Question(s): Necrotizing Pneumonia was documented in the record and on Discharge Summary, and as of the Discharge Summary. It is not clear if the patient was treated for Necrotizing Pneumonia in addition to the possible bacterial pneumonia, or if it was ruled-out/not treated. Please specify below, in your clinical opinion, regarding Necrotizing Pneumonia: ( x ) Necrotizing Pneumonia was treated during this admission, in addition to possible bacterial pneumonia ( ) Necrotizing Pneumonia was Not treated during this admission or was ruled- out ( ) Other: Please Specify Physician's Response(s): Thank you Francia Washburn Principal Diagnosis: "that condition established after study, to be chiefly responsible for occasioning the admission of the patient to the hospital for care." Co-Existing Principal Diagnosis: "when two or more diagnoses equally meet the criteria for principal diagnosis as determined by the circumstances of admission, diagnostic work up, and/or therapy provided, and the Alphabetic Index, Tabular List, or another coding guideline does not provide sequencing direction, any one of the diagnoses may be sequenced first." "When the physician has documented what appears to be a current diagnosis in the body of the record, but has not included the diagnosis in the final diagnostic statement, the physician should be asked whether the diagnosis should be added." (Source Coding [facility] 2 QTR90. p3-4) BAILEY
== END 2023-03-24 16:39 | disposition home or self-care (01) | DRG 177 ==
LOC: ED 12:35 → 3E 12:35 → SUATTDRO 16:36 → 3E 17:40

== ENCOUNTER 2024-02-08 15:30 | Observation (INO) ==
--- NOTE | 2024-02-08 16:57 | Emergency Department Note ---
History of Present Illness General Chief complaint: Back Injury/Pain Stated complaint: L SIDE BACK/RIB PAIN Time Seen by Provider: 02/08/24 16:27 History of Present Illness Maximum Pain Intensity: 9 This is a 33-year-old male with a history of necrotizing pneumonia, hypertension that presents to the emergency department via private vehicle with complaints of "left-sided rib pain". Patient states that he was here in the ED few days ago for evaluation of left-sided rib pain. The rib pain began after he "cracked" his back a few days prior. No direct trauma. No true injury to the area. The patient states that the left-sided rib pain continues and particularly is worsened by deep breath. He feels as though there is a muscle tearing in the left flank/left posterior lateral rib area that is worse with movement. Mildly better with rest. No history of NM or PE. He denies any history of bleeding disorders. No anticoagulant use. No abdominal pain. Patient did take Excedrin prior to arrival. Home Medications Medication Instructions Recorded Confirmed Type multivitamin 1 tab PO DAILY 01/25/19 02/08/24 History lisinopril 20 mg tablet 20 mg PO HS #90 tabs 09/15/23 02/08/24 Rx Allergies Allergy/AdvReac Type Severity Reaction Status Date / Time No Known Allergies Allergy Verified 09/09/23 08:14 Past Med/Surg History Problem List (Updated 02/09/24 @ 00:41 by Franck Miller PA-C) Parapneumonic effusion (Acute) Parainfluenza (Acute) Left lower lobe consolidation (Acute) Rib pain on left side (Acute) Snoring Pulmonary nodules Abnormal CT scan of lung (Acute) Necrotizing pneumonia (Acute) Prediabetes Hypertension Dyslipidemia Fatty liver Migraine headache Obesity (BMI 30-39.9) Vitamin D deficiency Medical History COVID-19 (01/2022) Tinnitus of left ear Pneumonia Surgical History H/O tooth extraction Family History Grandmother (Paternal) Ovarian cancer Father Hypertension Obstructive sleep apnea Mother No problems noted. Denies family history of Prostate cancer Myocardial infarction Breast cancer Colorectal cancer Social History Smoking Status: Never smoker Second Hand Exposure: No; Do You Dip or Chew Tobacco: No; Hx Alcohol Use: No Hx Substance Use: No Preferred Language: Italian Communication Ability: Effective Visual Impairment: No Limitations Hearing Ability: Normal Dredging Inspector Required: No Beliefs That Will Affect Care: None marital status: Single Current Living Situation: Parent Current Living Situation Comment: Lives at home with parents current occupational status: employed current occupation: Delivery w/ [employer] How many Children do You have: 0 Other Information That Helps Us Care for You: No Feels Safe at Home: Yes Safety Concerns: Feels Safe At This Time Childhood Exposure to Second-Hand Smoke: No Diet: regular Diet Comment: Regular caffeine: Yes during the past year weight has: remained stable Dental Care, Regularly: Yes Physical Activity Frequency: 1-2 Times per Week Physical Activity Frequency Comment: walks his dogs Seatbelt Use: always Sunscreen Use: Yes Assistive Devices: None Review of Systems A total of 10 systems reviewed and were otherwise negative Physical Exam Vital Signs Vital Signs - 24 hr 02/08/24 16:03 02/08/24 17:40 02/08/24 17:41 Temperature 36.6 C Temperature Source Temporal Artery Scan Pulse Rate 105 H 92 H Pulse Rate [Left Finger] 93 H Pulse Rhythm Regular Pulse Rhythm [Left Finger] Regular Pulse Strength [Left Finger] Normal Respiratory Rate 20 18 20 Respiratory Effort / Characteristics Non-Labored Spontaneous Non-Labored Spontaneous Respiratory Depth Normal Normal Respiratory Pattern Regular Blood Pressure 125/79 Blood Pressure [Right Arm] 124/78 Blood Pressure Mean 94 Blood Pressure Mean [Right Arm] 93 Blood Pressure Position [Right Arm] Sitting Pulse Oximetry 94 93 93 Oxygen Delivery Method Room Air Room Air Room Air Sepsis Recent Fever Within 48 Hours No Sepsis New/Unexplained Change in Mental Status N/A Sepsis Action Taken by Nursing No Action Required 02/08/24 18:52 02/08/24 19:00 02/08/24 20:30 Temperature Temperature Source Pulse Rate 87 Pulse Rate [Left Finger] 87 89 Pulse Rhythm Pulse Rhythm [Left Finger] Regular Pulse Strength [Left Finger] Respiratory Rate 20 22 Respiratory Effort / Characteristics Non-Labored Spontaneous Respiratory Depth Normal Respiratory Pattern Regular Blood Pressure Blood Pressure [Right Arm] 130/74 124/85 Blood Pressure Mean Blood Pressure Mean [Right Arm] 92 98 Blood Pressure Position [Right Arm] Semi-fowlers Semi-fowlers Pulse Oximetry 95 96 Oxygen Delivery Method Room Air Room Air Sepsis Recent Fever Within 48 Hours Sepsis New/Unexplained Change in Mental Status Sepsis Action Taken by Nursing VITAL SIGNS - Vital signs and nursing notes were reviewed. Stable and afebrile. GENERAL -33-year-old male appearing his stated age. Communicates well with provider and answers questions appropriately. SKIN - Gross examination of the entire body surface demonstrates no lacerations to the body surface. These lacerations will not require repair. There is no ecchymosis to the left flank, back or surrounding areas. HEAD - Normocephalic, Atraumatic. EYES - PERRL with EOMI bilaterally. Without subconjunctival hemorrhage. Palpebral conjunctiva pink and moist with no injection. EARS - No deformities of external structures noted on gross examination bilaterally. NOSE - Midline and without cyanosis. No epistaxis or clear watery discharge noted. NECK - No tenderness to palpation over the cervical spinous processes. No cervical paraspinal muscle tenderness noted. LUNGS - Chest wall symmetric without accessory muscle use, intercostals retractions, or central cyanosis. Overall lungs CTA with mild diminished sounds on LLL region. However, when the patient takes a deep breath he points to the left posterior lateral flank/inferior rib region as location of discomfort. It is not reproducible with palpation. CARDIAC - RRR ABDOMEN - Abdominal contour normal and without pulsations or visible masses. BS normoactive all four quadrants. No rebound tenderness or guarding noted. EXTREMITIES - No gross deformities noted of the extremities. +5/5 strength noted in UE/LE bilaterally. NEUROLOGIC - Cranial nerves grossly intact. PSYCH - A&Ox3 and cooperates fully with examiner. Pt is very pleasant and interacts well with examiner. Course Administered Medications Guaifenesin/Dextromethorphan (Guaifenesin/Dextrom Syrup 200mg/20mg 10ml Udc) 10 ml PO Q6H PRN PRN Reason: Cough Stop: 03/09/24 22:48 Last Admin: 02/08/24 23:13 Dose: 10 ml Documented By: [facility] [place], [place] Ceftriaxone Sodium (Rocephin) 2,000 mg in 50 mls @ 100 mls/hr IV Q24H [facility]Y Stop: 02/15/24 22:59 Last Infusion: 02/09/24 00:14 Dose: Infused Documented By: Admin: 02/08/24 23:43 Dose: 100 mls/hr Documented By: ALTHEA Lactated Ringer's (Lr) 1,000 mls @ 125 mls/hr IV .Q8H [facility] Stop: 02/09/24 06:59 Last Admin: 02/09/24 00:14 Dose: 125 mls/hr Documented By: ALTHEA Discontinued Medications Hydromorphone HCl (Hydromorphone Inj 0.5 Mg/0.5 Ml Syr) 0.5 mg IV NOW STA Stop: 02/08/24 22:57 Last Admin: 02/08/24 23:13 Dose: 0.5 mg Documented By: ALTHEA Sodium Chloride (Nss) 1,000 mls @ 999 mls/hr IV .Q1H1M AMY Stop: 02/08/24 20:30 Last Infusion: 02/08/24 20:53 Dose: Infused Documented By: Admin: 02/08/24 19:36 Dose: 999 mls/hr Documented By: Piperacillin Sod/Tazobactam Sod (Zosyn) 4.5 gm in 100 mls @ 200 mls/hr IV NOW ONE Stop: 02/08/24 20:01 Last Infusion: 02/08/24 20:27 Dose: Infused Documented By: Admin: 02/08/24 19:57 Dose: 200 mls/hr Documented By: Ioversol (Optiray 320 125ml) 119 ml IV ONCE ONE Stop: 02/08/24 18:33 Last Admin: 02/08/24 18:32 Dose: 119 ml Documented By: MELCHOR Medical Decision Making Laboratory Data 02/08/24 17:30 02/08/24 17:30 Lab Results 02/08/24 02/08/24 02/08/24 Range/Units 17:30 18:40 19:50 WBC 15.56 H (4.8-10.8) K/ul RBC 4.67 L (4.70-6.10) M/uL Hgb 12.3 L (14.0-18.0) g/dl Hct 37.8 L (42.0-52.0) % MCV 80.9 (80.0-100.0) fL MCH 26.3 (25.0-34.0) pg MCHC 32.5 (32.0-36.0) g/dL RDW Std Deviation 36.7 (36.4-46.3) fL RDW Coeff of Aminata 12.4 (11.5-14.5) % Plt Count 337 (130-400) K/uL MPV 10.8 (9.4-12.4) fL Immature Gran % (Auto) 0.3 % Neut % (Auto) 80.8 % Lymph % (Auto) 10.3 % Bibb % (Auto) 7.4 % Eos % (Auto) 0.8 % Baso % (Auto) 0.4 % Neut # (Auto) 12.57 H (1.40-6.50) K/uL Lymph # (Auto) 1.61 (1.20-3.40) K/uL Bibb # (Auto) 1.15 H (0.11-0.59) K/uL Eos # (Auto) 0.13 (0.00-0.50) K/uL Baso # (Auto) 0.06 (0.00-0.20) K/uL Immature Gran # (Auto) 0.04 (0.01-0.20) K/uL ESR 106 H (0-15) mm/hr PT 10.9 (9.0-12.0) Seconds INR 1.0 (0.9-1.1) APTT 31 (21-31) Seconds PTT Ratio 1.2 Sodium 135 L (136-145) mmol/L Potassium 4.1 (3.5-5.1) mmol/L Chloride 101 (98-107) mmol/L Carbon Dioxide 25 (21-32) mmol/L Anion Gap 9 (3-11) BUN 11 (6-23) mg/dl Creatinine 0.72 (0.6-1.4) mg/dl Est Cr Clr Drug Dosing 188.5 ml/min Est GFR ( Amer) 144.1 ml/min Est GFR (Non-Af Amer) 124.3 ml/min BUN/Creatinine Ratio 15.3 (10-20) Glucose 105 H (70-99(Fasting)) mg/dl Calcium 9.8 (8.6-10.3) mg/dl Magnesium 1.9 (1.7-2.4) mg/dl Total Bilirubin 0.6 (0.2-1.0) mg/dl AST 19 (13-39) U/L ALT 29 (7-52) U/L Alkaline Phosphatase 94 (34-104) U/L Troponin I High Sens 3.1 (0-20) pg/ml C-Reactive Protein 21.25 H (0-0.5) mg/dl Total Protein 7.6 (6.0-8.3) gm/dl Albumin 4.0 (3.4-5.0) gm/dl Globulin 3.6 (2.5-4.0) gm/dl Albumin/Globulin Ratio 1.1 (0.9-2) Urine Color Yellow Urine Appearance Clear (Clear) Urine pH 7.0 (4.5-7.5) Ur Specific [place] > 1.045 H (1.000-1.030) Urine Protein Negative (Negative) Urine Glucose (UA) Negative (Negative) Urine Ketones Trace H (Negative) Urine Blood Negative (Negative) Urine Nitrite Negative (Negative) Urine Bilirubin Negative (Negative) Urine Urobilinogen Negative (Negative) Ur Leukocyte Esterase Negative (Negative) Nasal Screen MRSA (PCR) Negative (Negative) Adenovirus (PCR) Not Detected (NotDetected) B. pertussis DNA (PCR) Not Detected (NotDetected) B.parapertussis DNA PCR Not Detected (NotDetected) C. pneumoniae DNA (PCR) Not Detected (NotDetected) Coronavirus OC43 (PCR) Not Detected (NotDetected) Coronavirus HKU1 (PCR) Not Detected (NotDetected) Coronavirus 229E (PCR) Not Detected (NotDetected) SARS-CoV-2 (PCR) Not Detected (NotDetected) Coronavirus NL63 (PCR) Not Detected (NotDetected) Human Metapneumovir PCR Not Detected (NotDetected) Influenza Type A (PCR) Not Detected (NotDetected) Influenza Type B (PCR) Not Detected (NotDetected) M. pneumoniae (PCR) Not Detected (NotDetected) Parainfluenza 1 (PCR) Not Detected (NotDetected) Parainfluenza 2 (PCR) Not Detected (NotDetected) Parainfluenza 3 (PCR) DETECTED A (NotDetected) Parainfluenza 4 (PCR) Not Detected (NotDetected) RSV (PCR) Not Detected (NotDetected) Entero/Rhino (PCR) Not Detected (NotDetected) Imaging Data Radiologist's Impression: Abdomen/Pelvis CT 02/08/24 16:57 CT angio chest PE protocol, CT abd pelvis IV con only CT DOSE: 916.76 mGy.cm (accession [id number]), 1458.22 mGy.cm (accession [id number]) HISTORY: 33 years-old Male with L sided rib pain/ flank pain, pain w/ deep breath. Acute shortness of breath with left-sided chest and abdominal pain TECHNIQUE: Multiple CTA images of the chest were obtained after the intravenous administration of 119 ml Optiray. Coronal and sagittal MIPS were obtained from the axial data set and were submitted for review. All measurements were obtained according to NASCET criteria. CT abdomen and pelvis with IV contrast also obtained. A dose lowering technique was utilized adhering to the principles of ALARA. COMPARISON: Chest CT 06/12/2023 FINDINGS: CTA: No central pulmonary emboli identified. Evaluation of the distal branches limited secondary to respiratory motion. Normal thoracic aorta.Heart size is normal. CT CHEST: Unremarkable thyroid. Progressive mediastinal and hilar lymphadenopathy. Paratracheal and hilar lymph nodes measure up to 11 mm. Small to moderate left pleural effusion. No pneumothorax. Respiratory motion limits evaluation of the lungs. Bronchial wall thickening. There are a few areas of subpleural nodular consolidation within the right upper lobe measuring up to 7 mm on image 144, likely infectious or inflammatory. Patchy left basilar consolidation with a focal area of 6 cm consolidation within the left lower lobe subpleural distribution on image 97. Unremarkable soft tissues. No acute fracture. CT ABDOMEN AND PELVIS: Mid to distal esophageal wall thickening with adjacent inflammatory stranding. Hepatosplenomegaly with hepatic steatosis. Patent portal vein. No free air. Unremarkable pancreas, gallbladder and adrenal glands. Unremarkable kidneys. No hydronephrosis. Unremarkable urinary bladder. Aorta and IVC are within normal limits. No lymphadenopathy. No bowel obstruction or bowel wall thickening. No ascites or mesenteric inflammation. Normal appendix. Stool-filled terminal ileum. No acute fracture. IMPRESSION: 1. Left lower lobe airspace consolidation suggestive of pneumonia with small to moderate parapneumonic effusion. Follow-up imaging after treatment course is needed in order to document complete resolution. 2. Subpleural subcentimeter nodules within the right lung measuring up to 7 mm, likely infectious or inflammatory. Attention at follow-up recommended. 3. Mediastinal and hilar lymphadenopathy, likely reactive. 4. Hepatosplenomegaly with hepatic steatosis. 6. No pulmonary emboli. ACT 112: Negative or not required by law. The above report was generated using voice recognition software. It may contain grammatical, syntax or spelling errors. Electronically signed by: Ander Walsh M.D. 02/08/2024 7:08 PM Chest CTA 02/08/24 16:58 CT angio chest PE protocol, CT abd pelvis IV con only CT DOSE: 916.76 mGy.cm (accession [id number]), 1458.22 mGy.cm (accession [id number]) HISTORY: 33 years-old Male with L sided rib pain/ flank pain, pain w/ deep breath. Acute shortness of breath with left-sided chest and abdominal pain TECHNIQUE: Multiple CTA images of the chest were obtained after the intravenous administration of 119 ml Optiray. Coronal and sagittal MIPS were obtained from the axial data set and were submitted for review. All measurements were obtained according to NASCET criteria. CT abdomen and pelvis with IV contrast also obtained. A dose lowering technique was utilized adhering to the principles of ALARA. COMPARISON: Chest CT 06/12/2023 FINDINGS: CTA: No central pulmonary emboli identified. Evaluation of the distal branches limited secondary to respiratory motion. Normal thoracic aorta.Heart size is normal. CT CHEST: Unremarkable thyroid. Progressive mediastinal and hilar lymphadenopathy. Paratracheal and hilar lymph nodes measure up to 11 mm. Small to moderate left pleural effusion. No pneumothorax. Respiratory motion limits evaluation of the lungs. Bronchial wall thickening. There are a few areas of subpleural nodular consolidation within the right upper lobe measuring up to 7 mm on image 144, likely infectious or inflammatory. Patchy left basilar consolidation with a focal area of 6 cm consolidation within the left lower lobe subpleural distribution on image 97. Unremarkable soft tissues. No acute fracture. CT ABDOMEN AND PELVIS: Mid to distal esophageal wall thickening with adjacent inflammatory stranding. Hepatosplenomegaly with hepatic steatosis. Patent portal vein. No free air. Unremarkable pancreas, gallbladder and adrenal glands. Unremarkable kidneys. No hydronephrosis. Unremarkable urinary bladder. Aorta and IVC are within normal limits. No lymphadenopathy. No bowel obstruction or bowel wall thickening. No ascites or mesenteric inflammation. Normal appendix. Stool-filled terminal ileum. No acute fracture. IMPRESSION: 1. Left lower lobe airspace consolidation suggestive of pneumonia with small to moderate parapneumonic effusion. Follow-up imaging after treatment course is needed in order to document complete resolution. 2. Subpleural subcentimeter nodules within the right lung measuring up to 7 mm, likely infectious or inflammatory. Attention at follow-up recommended. 3. Mediastinal and hilar lymphadenopathy, likely reactive. 4. Hepatosplenomegaly with hepatic steatosis. 6. No pulmonary emboli. ACT 112: Negative or not required by law. The above report was generated using voice recognition software. It may contain grammatical, syntax or spelling errors. Electronically signed by: Ander Walsh M.D. 02/08/2024 7:08 PM MAG Narrative Patient was seen and evaluated as above in room D01b. Review was performed of triage nursing notes and vital signs. I did review pertinent previous visits and patient history. After obtaining a thorough history and physical examination the above work up was performed. Patient presents to us today for evaluation of left posterior lateral rib pain. Patient "cracked" his back by twisting/turning and there was no reported distinct trauma or injury. However the pain continues. He was seen here a few days ago in the ED and had x-rays which were overall normal. Patient continues with symptoms therefore prompting arrival here today. Patient is mildly tachycardic on arrival at 105. Per review of the EMR he does have a history of necrotizing pneumonia which appears to have cleared based on CT scan and follow-up performed in May 2023. On assessment I am not able to reproduce the discomfort with palpation at all. The integument is within normal limits to inspection. No ecchymosis or signs of trauma. However, when the patient takes a deep breath or moves in a certain direction the pain worsens. Options of care were discussed with the patient. IV access was established. Labs were drawn. EKG was performed and reveals normal sinus rhythm at a rate of 96 bpm. QTc 419. QRS 90. There is no ST elevation. TWI noted in lead III. This was compared to previous EKG of March 22, 2023 no significant change was found. There is leukocytosis 15.56, mild anemia noted with hemoglobin of 12.3. Mild hyponatremia 135. Troponin is within normal range. Urinalysis does not suggest infection. CTA of the chest was performed as well as abdomen/pelvis assessment to further evaluate noting location of discomfort. Left lower lobe consolidation suggestive of pneumonia noted with small to moderate parapneumonic effusion. This is felt to be the etiology of the patient's symptoms at this time. Upon repeat assessment patient was coughing. Sputum culture was ordered. Bio fire panel was obtained and was positive for parainfluenza 3. MRSA nasal screen negative. IV Zosyn ordered for broad coverage. I do believe that further evaluation and management in the inpatient setting is warranted. Case discussed with the hospitalist service. Please refer to further documentation regarding his stay. GCS: 15 In the evaluation and treatment of this patient the following differential diagnoses were entertained: NM, PE, pneumonia, rib fracture, pneumothorax, hemothorax, malignancy, among others. Impression & Plan Abnormal CT scan of lung, Rib pain on left side, Left lower lobe consolidation, Parainfluenza, Parapneumonic effusion Discharge Plan Visit Data Chief Complaint: Back Injury/Pain Stated Complaint: L SIDE BACK/RIB PAIN ED Provider: Clyde Toussaint ED Midlevel Provider: Franck Miller Discharge Problem: Abnormal CT scan of lung, Rib pain on left side, Left lower lobe consolidation, Parainfluenza, Parapneumonic effusion Patient Disposition: Admitted As Inpatient Condition: Good Discharge Instructions Interventions: ED Discharge Assessment Last Done: 02/08/24 22:21
[2024-02-08 17:56] LABS: Basophils # (auto) 0.06 K/uL (0.00-0.20); Basophils % (auto) 0.4 %; Eosinophils # (auto) 0.13 K/uL (0.00-0.50); Eosinophils % (auto) 0.8 %; Hematocrit (blood only) 37.8 % (42.0-52.0); Hemoglobin 12.3 g/dl (14.0-18.0); Immature Granulocytes # (auto) 0.04 K/uL (0.01-0.20); Immature Granulocytes % (auto) 0.3 %; Lymphocytes # (auto) 1.61 K/uL (1.20-3.40); Lymphocytes % (auto) 10.3 %; Mean Corpuscular Hemoglobin 26.3 pg (25.0-34.0); Mean Corpuscular Hgb Conc 32.5 g/dL (32.0-36.0); Mean Corpuscular Volume 80.9 fL (80.0-100.0); Mean Platelet Volume 10.8 fL (9.4-12.4); Monocytes # (auto) 1.15 K/uL (0.11-0.59); Monocytes % (auto) 7.4 %; Neutrophils # (auto) 12.57 K/uL (1.40-6.50); Neutrophils % (auto) 80.8 %; Platelet Count 337 K/uL (130-400); RDW Coefficient of Variation 12.4 % (11.5-14.5); RDW Standard Deviation 36.7 fL (36.4-46.3); Red Blood Count 4.67 M/uL (4.70-6.10); White Blood Count 15.56 K/ul (4.8-10.8)
[2024-02-08 18:10] LABS: Albumin Globulin Ratio 1.1 (0.9-2); BUN Creatinine Ratio 15.3 (10-20); Bilirubin,Total 0.6 mg/dl (0.2-1.0); Calcium 9.8 mg/dl (8.6-10.3); Creatinine Clr Calc Pharmacy 188.5 ml/min; Est GFR (African American) 144.1 ml/min; Est GFR (Non-African American) 124.3 ml/min; Globulin 3.6 gm/dl (2.5-4.0); Magnesium 1.9 mg/dl (1.7-2.4); Potassium 4.1 mmol/L (3.5-5.1); Total Protein 7.6 gm/dl (6.0-8.3)
[2024-02-08 18:15] LABS: Troponin I High Sensitivity 3.1 pg/ml (0-20)
[2024-02-08 18:18] LABS: Partial Thromboplastin Ratio 1.2; Partial Thromboplastin Time 31 Seconds (21-31); Prothrombin Time 10.9 Seconds (9.0-12.0)
[2024-02-08] MEDS: OPTIRAY 320 125ml IV ONE (18:32)
[2024-02-08 19:02] LABS: Appearance Urine Clear (Clear); Bilirubin Urine Negative (Negative); Blood Urine Negative (Negative); Color Urine Yellow; Glucose Urine UA Negative (Negative); Ketones Urine Trace (Negative); Leukocyte Esterase Urine Negative (Negative); Nitrite Urine Negative (Negative); Protein Urine Negative (Negative); Specific Gravity Urine > 1.045 (1.000-1.030); Urobilinogen Urine Negative (Negative)
--- NOTE | 2024-02-08 19:09 | CT Scan Report ---
CT angio chest PE protocol, CT abd pelvis IV con only CT DOSE: 916.76 mGy.cm (accession [id number]), 1458.22 mGy.cm (accession [id number]) HISTORY: 33 years-old Male with L sided rib pain/ flank pain, pain w/ deep breath. Acute shortness of breath with left-sided chest and abdominal pain TECHNIQUE: Multiple CTA images of the chest were obtained after the intravenous administration of 119 ml Optiray. Coronal and sagittal MIPS were obtained from the axial data set and were submitted for review. All measurements were obtained according to NASCET criteria. CT abdomen and pelvis with IV c ontrast also obtained. A dose lowering technique was utilized adhering to the principles of ALARA. COMPARISON: Chest CT 06/12/2023 FINDINGS: CTA: No central pulmonary emboli identified. Evaluation of the distal branches limited secondary to respir atory motion. Normal thoracic aorta.Heart size is normal. CT CHEST: Unremarkable thyroid. Progressive mediastinal and hilar lymphadenopathy. Paratracheal and hilar lymph nodes measure up to 11 mm. Small to moderate left pleural effusion. No pneumothorax. Respiratory mot ion limits evaluation of the lungs. Bronchial wall thickening. There are a few areas of subpleural no dular consolidation within the right upper lobe measuring up to 7 mm on image 144, likely infectious or inflammatory. Patchy left basilar consolidation with a focal area of 6 cm consolidation within the left lower lobe subpleural distribution on image 97. Unremarkable soft tissues. No acute fracture. CT ABDOMEN AND PELVIS: Mid to distal esophageal wall thickening with adjacent inflammatory stranding. Hepatosplenomegaly wit h hepatic steatosis. Patent portal vein. No free air. Unremarkable pancreas, gallbladder and adrenal glands. Unremarkable kidneys. No hydronephrosis. Unremarkable urinary bladder. Aorta and IVC are with in normal limits. No lymphadenopathy. No bowel obstruction or bowel wall thickening. No ascites or mesenteric inflammation. Normal appendix . Stool-filled terminal ileum. No acute fracture. IMPRESSION: 1. Left lower lobe airspace consolidation suggestive of pneumonia with small to moderate parapneumoni c effusion. Follow-up imaging after treatment course is needed in order to document complete resoluti on. 2. Subpleural subcentimeter nodules within the right lung measuring up to 7 mm, likely infectious or inflammatory. Attention at follow-up recommended. 3. Mediastinal and hilar lymphadenopathy, likely reactive. 4. Hepatosplenomegaly with hepatic steatosis. 6. No pulmonary emboli. ACT 112: Negative or not required by law. The above report was generated using voice recognition software. It may contain grammatical, syntax o r spelling errors. Electronically signed by: Ander Walsh M.D. 02/08/2024 7:08 PM
[2024-02-08] MEDS: SODIUM CHLORIDE 0.9% 1,000 ML IV SCH (19:36)
[2024-02-08] MEDS: PIPERACILLIN/TAZOBACTAM 4.5 GM/100 ML BAG IV ONE (19:57)
[2024-02-08 20:57] LABS: Adenovirus PCR Not Detected (NotDetected); Bordetella parapertussis PCR Not Detected (NotDetected); Bordetella pertussis PCR Not Detected (NotDetected); Chlamydia pneumoniae PCR Not Detected (NotDetected); Coronavirus 229E PCR Not Detected (NotDetected); Coronavirus CoV-2 (COVID19)PCR Not Detected (NotDetected); Coronavirus HKU1 PCR Not Detected (NotDetected); Coronavirus NL63 PCR Not Detected (NotDetected); Coronavirus OC43PCR Not Detected (NotDetected); Human Metapneumovirus PCR Not Detected (NotDetected); Influenza A PCR Not Detected (NotDetected); Influenza B PCR Not Detected (NotDetected); Mycoplasma pneumoniae PCR Not Detected (NotDetected); Parainfluenza Virus 1 PCR Not Detected (NotDetected); Parainfluenza Virus 2 PCR Not Detected (NotDetected); Parainfluenza Virus 3 PCR DETECTED (NotDetected); Parainfluenza Virus 4 PCR Not Detected (NotDetected); Respiratory Syncytial VirusPCR Not Detected (NotDetected); Rhinovirus/Enterovirus PCR Not Detected (NotDetected)
--- NOTE | 2024-02-08 21:52 | History & Physical Report ---
Date of Service February 08, 2024 Assessment & Plan (1) Left lower lobe consolidation: Plan: 33 M with PMH of necrotizing pneumonia (in 2022) and hypertension who presented to the ER with pleuritic left-sided chest pain x 5 days, found to have left lower lobe consolidation concerning for pneumonia. Now admitted for further evaluation, management of community-acquired pneumonia. Left Lower Lobe Consolidation/Pleuritic Chest Pain -Afebrile, saturating well, rest of vitals normal. -CTA chest: Left lower lobe airspace consolidation suggestive of pneumonia, with small to moderate parapneumonic effusion; mediastinal and hilar lymphadenopathy. Sputum culture pending. -WBC-15.56. Respiratory Biofire positive for parainfluenza 3. -S/p empiric Zosyn in ER prior to admission. -Managing presumptively as community-acquired pneumonia. However, patient's young age, previous and repeated pulmonary history raises enough suspicion for the possibility of an alternate process, requiring additional evaluation. Diffe rential diagnosis includes sarcoidosis, lymphoma, or other autoimmune pulmonary process. * Admit to MedSurg * Empiric antibiotic management: IV ceftriaxone 2 g daily, p.o. azithromycin 500 mg daily * Additional lab workup pending: ESR, CRP, CLARENCE, TINO level, flow cytometry (leukemia/lymphoma), lung FISH. * Maintenance IVF: IV LR@195 mL/h x 1 bag * Pain control: Ibuprofen 800 mg 3 times daily AMY; IV Dilaudid 0.5 mg every 3 hours as needed for breakthrough pain * Guaifenesin/dextromethorphan 10 mL every 6 hours as needed for cough. May consider guaifenesin + codeine if cough persists * Trend daily CBC, BMP * Pulmonology consult placed. Appreciate recommendations * May also consider hematology consult * Recommend outpatient allergy & immunology evaluation for potential allergen exposure (e.g. RAST zone 3 allergen testing) Hypertension -Chronic. Managed on lisinopril 20 mg qHS * Continue home lisinopril Code: Full code Dispo: Med-Surg FEN/GI: LR @maintenance rate. Heart healthy DVT Prophylaxis: Lovenox 40 mg q24h PT/OT: No Consults: Pulmonology Case Management: No (2) Parainfluenza: (3) Pleuritic chest pain: (4) Hypertension: History of Present Illness Primary Care Provider: DO David Cadet is a 33-year-old male with a past medical history of necrotizing pneumonia and hypertension, who presented to the ER today with a complaint of left-sided chest pain. In the ED, patient described a sensation of "tearing" rib pain. Patient denies any trauma, direct or otherwise. According to the patient, on Friday he suffered a cold/flulike symptoms cough, rhinorrhea that "went through the entire family." After briefly improving, he began experiencing mild left-sided pain continued to worsen. Pain is aggravated by coughing, deep inspiratory breaths. He denies headache, fever, chills, nausea, vomiting, abdominal pain, or fatigue. In the ED, vitals were stable, within normal limits. Initial workup was notable for WBC-15.56. BMP was mostly normal. Respiratory bio fire was positive for parainfluenza 3 but was otherwise negative. Chest x-ray was negative for acute fracture or other intrapulmonary process. CTA chest revealed "left lower lobe airspace consolidation suggestive of pneumonia with small to moderate parapneumonic effusion" as well as "mediastinal and hilar lymphadenopathy." He received a 1 L NS bolus, and a dose of IV Zosyn the hospital service was then consulted for admission. Patient had previously presented with pulmonary symptoms on at least 2 prior occasions. In March 2023, after presenting with chest pain and hemoptysis imaging revealed left upper lobe necrosis and cavitation that was determined to be necrotizing pneumonia after an exhaustive pulmonary workup (TB, Coccidioides, cryptococcus, histoplasma) returned negative. He was subsequently cleared by pulmonology on outpatient follow-up. In January 2019, he presented with hemoptysis, shortness of breath, and right-sided chest pain CT chest (elevated D-dimer had raised suspicion for PE) revealed left upper lobe consolidation thought to be a round pneumonia. He was discharged home from the ER on cefdinir and azithromycin. Allergies Allergy/AdvReac Type Severity Reaction Status Date / Time No Known Allergies Allergy Verified 09/09/23 08:14 Home Medications Medication Instructions Recorded Confirmed Type multivitamin 1 tab PO DAILY 01/25/19 02/08/24 History lisinopril 20 mg tablet 20 mg PO HS #90 tabs 09/15/23 02/08/24 Rx amoxicillin 875 mg-potassium 1 tab PO BID 5 days #10 tabs 02/09/24 Rx clavulanate 125 mg tablet Past Med/Surg History Problem List (Updated 02/09/24 @ 00:56 by Sudeep Woodall MD) Pleuritic chest pain Parapneumonic effusion (Acute) Parainfluenza (Acute) Left lower lobe consolidation (Acute) Rib pain on left side (Acute) Snoring Pulmonary nodules Abnormal CT scan of lung (Acute) Necrotizing pneumonia (Acute) Prediabetes Hypertension Dyslipidemia Fatty liver Migraine headache Obesity (BMI 30-39.9) Vitamin D deficiency Medical History COVID-19 (01/2022) Tinnitus of left ear Pneumonia Surgical History H/O tooth extraction Family History Grandmother (Paternal) Ovarian cancer Father Hypertension Obstructive sleep apnea Mother No problems noted. Denies family history of Prostate cancer Myocardial infarction Breast cancer Colorectal cancer Social History Smoking Status: Never smoker Second Hand Exposure: No; Do You Dip or Chew Tobacco: No; Hx Alcohol Use: No Hx Substance Use: No Preferred Language: Mongolian Communication Ability: Effective Visual Impairment: No Limitations Hearing Ability: Normal Cruise Agent Required: No Beliefs That Will Affect Care: None marital status: Single Current Living Situation: Parent Current Living Situation Comment: Lives at home with parents current occupational status: employed current occupation: Delivery w/ [employer] How many Children do You have: 0 Feels Safe at Home: Yes Childhood Exposure to Second-Hand Smoke: No Diet: regular Diet Comment: Regular caffeine: Yes during the past year weight has: remained stable Dental Care, Regularly: Yes Physical Activity Frequency: 1-2 Times per Week Physical Activity Frequency Comment: walks his dogs Seatbelt Use: always Sunscreen Use: Yes Assistive Devices: None Review of Systems Review of Systems: All systems reviewed & are unremarkable except as noted in HPI & below Physical Exam Physical Exam: General: No acute distress HEENT: PERRLA. Normal conjunctiva, anicteric sclera. Oropharynx normal. Respiratory: Respiratory effort diminished due to pain. Diminished breath sounds bibasilarly, L >R. No crackles or rhonchi heard. Cardiovascular: RRR without murmurs, gallops, or rubs. No pedal edema. GI: Soft abdomen with normal bowel sounds heard on auscultation. Nontender x4 quadrants Neuro: Alert and oriented x3. Results & Data Results & Data Vital Signs (Past 12 Hours) Vital Signs Temp Pulse Pulse Resp BP BP Pulse Ox 02/08/24 20:30 89 22 124/85 96 02/08/24 19:00 87 20 130/74 95 02/08/24 18:52 87 02/08/24 17:41 93 H 20 124/78 93 02/08/24 17:40 92 H 18 93 02/08/24 16:03 36.6 C 105 H 20 125/79 94 O2 Del Method 02/08/24 20:30 Room Air 02/08/24 19:00 Room Air 02/08/24 18:52 02/08/24 17:41 Room Air 02/08/24 17:40 Room Air 02/08/24 16:03 Room Air Supervising Physician Co-Signing Physician Notes Attending addendum: I have physically seen this patient, have supervised the medical residents activities, and agree with the H&P unless as otherwise noted. Assessment and Plan: LLL Pneumonia/parapneumonic effusion/pulmonary nodules/mediastinal and hilar lym phadenopathy/hepatomegaly and hepatic steatosis- Patient with significant pulmonary history going back to 01/15/2019 CTA 01/15/2019 showed left upper lobe 4.2 cm round infiltrate, with nodules left lower lobe, right upper lobe and mild mediastinal and left hilar lymphadenopathy. This was treated conservatively with improvement in symptoms. CTA on 03/22/2023 showed left upper lobe cavitary lesion possible necrosis, with mild enlarged mediastinal and hilar lymphadenopathy, pulmonary nodules and splenomegaly. During that admission from 04/01-03/24/2023, patient had negative testing for BioFire, Coccidioides, chlamydia, cryptococcus, histoplasmosis, Legionella, and TB. CTA on 05/16/2023 showed left upper lobe almost completely resolved, left lower lobe with mild pneumonitis, less than 1 cm pulmonary nodules no change since 2019, but there was mildly increased mediastinal lymphadenopathy and mild splenomegaly. CTA today shows left lower lobe consolidation with small to moderate parapneumonic effusion, right lower lobe less than 1 cm, up to 7 mm nodules, mediastinal and hilar lymphadenopathy, hepatomegaly and hepatic steatosis. Patient is being placed empirically on IV antibiotics as noted Order the following testing: ESR, CLARENCE, TINO level, flow cytometry and lung FISH Duonebs every 4 hours while awake and every 2 hours when necessary. Guaifenesin extended release 12 mg p.o. twice daily Consult pulmonology, who has seen the patient in the past, both inpatient and outpatient To consider hematology/oncology consult Patient does have possible exposure to radon and/or black mold, as he lives in basement at his home. Follow serial CBC with differential, chemistry profile Hypertension- Continue lisinopril 20 mg daily Resident Activity Tracking Resident Involvement: Resident Care Provided Care Provided: Adult Hospital Medicine (4) Hypertension Hypertension type: essential hypertension Qualified Code(s): I10 - Essential (primary) hypertension
[2024-02-08 22:13] LABS: C Reactive Protein 21.25 mg/dl (0-0.5)
[2024-02-08] MEDS: HYDROmorphone INJ 0.5 MG/0.5 ML SYR IV STA (23:13)
[2024-02-08] MEDS: guaiFENesin/DEXTROM SYRUP 200MG/20MG 10ML UDC PO PRN (23:13)
[2024-02-08] MEDS: cefTRIAXone SODIUM 2,000 MG/50 ML BAG IV SCH (23:43)
[2024-02-09] MEDS: LACTATED RINGER'S 1,000 ML IV SCH (00:14)
[2024-02-09] MEDS ORDERED: HYDROmorphone INJ 0.5 MG/0.5 ML SYR IV PRN (00:56)
[2024-02-09 07:01] LABS: Basophils # (auto) 0.04 K/uL (0.00-0.20); Basophils % (auto) 0.3 %; Eosinophils # (auto) 0.06 K/uL (0.00-0.50); Eosinophils % (auto) 0.4 %; Hematocrit (blood only) 35.7 % (42.0-52.0); Hemoglobin 11.5 g/dl (14.0-18.0); Immature Granulocytes # (auto) 0.07 K/uL (0.01-0.20); Immature Granulocytes % (auto) 0.5 %; Lymphocytes # (auto) 1.31 K/uL (1.20-3.40); Lymphocytes % (auto) 8.6 %; Mean Corpuscular Hemoglobin 26.2 pg (25.0-34.0); Mean Corpuscular Hgb Conc 32.2 g/dL (32.0-36.0); Mean Corpuscular Volume 81.3 fL (80.0-100.0); Mean Platelet Volume 10.7 fL (9.4-12.4); Monocytes # (auto) 1.04 K/uL (0.11-0.59); Monocytes % (auto) 6.8 %; Neutrophils # (auto) 12.75 K/uL (1.40-6.50); Neutrophils % (auto) 83.4 %; Platelet Count 313 K/uL (130-400); RDW Coefficient of Variation 12.4 % (11.5-14.5); RDW Standard Deviation 36.7 fL (36.4-46.3); Red Blood Count 4.39 M/uL (4.70-6.10); White Blood Count 15.27 K/ul (4.8-10.8)
[2024-02-09 07:16] LABS: BUN Creatinine Ratio 10.3 (10-20); Calcium 9.1 mg/dl (8.6-10.3); Creatinine Clr Calc Pharmacy 174.6 ml/min; Est GFR (African American) 139.4 ml/min; Est GFR (Non-African American) 120.3 ml/min; Potassium 4.1 mmol/L (3.5-5.1)
[2024-02-09] MEDS: MULTIVITAMIN TAB PO SCH (08:06)
[2024-02-09] MEDS: AZITHROMYCIN 250 MG TAB PO SCH (08:06)
[2024-02-09] MEDS: ENOXAPARIN INJ 40 MG/0.4 ML SYR SQ SCH (08:07)
[2024-02-09] MEDS: IBUPROFEN 800 MG TAB PO SCH (08:07)
--- NOTE | 2024-02-09 08:18 | Pulmonary Consultation ---
Date of Consultation February 09, 2024 Assessment & Plan (1) Left lower lobe consolidation: (2) Parainfluenza: (3) Parapneumonic effusion: (4) Pleuritic chest pain: Plan IMPRESSION: 33-year-old male with a prior history of LEFT upper lobe necrotizing pneumonia who presents in the setting of parainfluenza virus with LEFT lower lobe consolidative pneumonia process with parapneumonic effusion and associated pleuritic chest discomfort. Pulmonary medicine consulted by resident service. RECOMMENDATIONS: 1. LEFT lower lobe consolidation - Findings consistent with pneumonia process. Currently on Rocephin and azithromycin. Lengthy discussion with the patient and he declines any alcohol use or other risk for aspiration. He has had no vomiting recently. Given his stability of supplemental oxygen requirement, and improvement did transition the patient to oral antibiotics and discharged home with follow-up in the outpatient pulmonary clinic. We have seen the patient in clinic previously and monitored serial lung lesions in the past. Patient will likely require follow-up CT in the next 3 to 4 months to assess for resolution. Certainly, the patient may warrant immunologic workup in the outpatient given his recurrence of pneumonia process, but again, this is something that could be deferred to outpatient workup at this point. Recommend transitioning the patient to oral Augmentin and complete an outpatient course. Continue with Mucinex as needed. 2. Parainfluenza virus - Symptomatic treatment as you are. 3. Parapneumonic effusion - Very small effusion noted on CTA. Likely associated with the infiltrative process. Area too small for fluid sampling. Follow-up imaging in the outpatient setting to assess for resolution. 4. Pleuritic chest pain - Not reproduced with this time and likely related to his effusion. Would recommend scheduled course of anti-inflammatories and topical remedies as you have been. 5. Snoring - As previously discussed during outpatient visit. The patient does report that he has been waking up with coughing fits. Would benefit from outpatient polysomnography evaluation given symptoms, snoring, obesity, and neck circumference. Will address this during outpatient follow-up as well. Thank you for allowing us to participate in the care of this pleasant patient. We will be happy to see the patient in the outpatient clinic in the next few weeks with plans for follow-up CT in the next 3 to 4 months. Pulmonary medicine will sign off at this time. Supervising Physician Co-Signing Physician Notes Patient seen and examined. EMR reviewed. Discussed with critical care EVETTE and agree with assessment plan as noted. The patient's clinical picture and radiographic findings are consistent with community-acquired pneumonia. Would agree with antibiotics appropriate for this clinical syndrome. He does not meet criteria for additional inpatient hospitalization at this point in time and can likely be safely dismissed in the outpatient setting. Will continue to follow him in clinic with a follow-up chest radiograph to ensure clearing of the airspace opacities. Thanks for the opportunity to participate in the care of this patient. Pulmon patrice will sign off. Feel free to contact us with questions or concerns. History of Present Illness Reason for Consultation: L lower lobe consolidation Requesting Physician: Dr. Woodall Attending Physician: Jimy Sanchez DO History of Present Illness Patient is a 33-year-old male with a significant past medical history of hypertension, prediabetes, dyslipidemia, and fatty liver who presented with complaints of LEFT-sided posterior rib pain which was pleuritic in nature and associated cough. Patient was seen in the emergency department on 02/04 with same complaint of discomfort after cracking his back awkwardly. His pain was mostly pleuritic and positional. Unfortunately, his symptoms of discomfort persisted and he developed a relatively productive cough of greenish sputum. He does note that prior to the back cracking incident, he and his family had been experiencing flulike symptoms. He was taking Mucinex which did seem to help somewhat. Unfortunately, given his ongoing symptoms, he presented back to the emergency department where he underwent CTA with findings of consolidative pneumonia noted in the LEFT lower lobe. Patient also tested positive for parainfluenza virus. Patient admitted to primary service for ongoing evaluation and management. Pulmonary consulted by resident service. Upon evaluation in room 3181, the patient is awake, alert, and oriented. He does report some ongoing posterior LEFT-sided flank discomfort which is worse with movement and deep separation. He notes that his cough has become more productive, but he feels better with airway clearing at this point. He has had no fevers or chills. No hemoptysis. No anterior chest pain, palpitations, dizziness, or lightheadedness. The patient reports that he has not drank alcohol in some time now. He states that he has had a couple events where he is woken up from sleep coughing. He does not feel as though he has been vomiting. No other significant exposures otherwise. Patient reports a few years of smoking flavored cigars, but has not done so in several years. No vaping. No marijuana use. He is without occupational exposure. No prior history of asthma, recurrent bronchitis, or COPD. Allergies Allergy/AdvReac Type Severity Reaction Status Date / Time No Known Allergies Allergy Verified 09/09/23 08:14 Home Medications Medication Instructions Recorded Confirmed Type multivitamin 1 tab PO DAILY 01/25/19 02/08/24 History lisinopril 20 mg tablet 20 mg PO HS #90 tabs 09/15/23 02/08/24 Rx Patient History Medical History COVID-19 (01/2022) Tinnitus of left ear Pneumonia Surgical History H/O tooth extraction Family History Grandmother (Paternal) Ovarian cancer Father Hypertension Obstructive sleep apnea Mother No problems noted. 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 do 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 Other Information That Helps Us Care for You: No Feels Safe at Home: Yes Safety Concerns: Feels Safe At This Time Childhood Exposure to Second-Hand Smoke: No Diet: regular Diet Comment: Regular caffeine: Yes during the past year weight has: remained stable Dental Care, Regularly: Yes Physical Activity Frequency: 1-2 Times per Week Physical Activity Frequency Comment: walks his dogs Seatbelt Use: always Sunscreen Use: Yes Assistive Devices: None Review of Systems Review of Systems: A complete 10 point review of systems was reviewed with the patient with pertinent positives and negatives as per history of present illness. All else were negative. Physical Exam Physical Exam: VITAL SIGNS - Vital signs and nursing notes were reviewed. GENERAL - 33-year-old male appearing his stated age who is in no acute distress. Communicates well with provider and answers questions appropriately. SKIN - Without rashes or lesions. NOSE - Midline and without cyanosis. MOUTH/OROPHARYNX - Without perioral cyanosis. NECK - Neck with FROM. LUNGS - Chest wall evaluation demonstrates normal chest wall A:P diameter. Auscultation reveals clear breath sounds bilaterally without wheezes, rales, or rhonchi appreciated. CARDIAC - RRR with S1/S2. No murmur, rubs, or gallops appreciated. ABDOMEN - Abdominal inspection demonstrates an obese abdomen. BS normoactive all four quadrants. No tenderness, palpable masses, or ascites noted. EXTREMITIES - Nail clubbing not present. No peripheral cyanosis. No pretibial edema present. +3/5 radial palpated throughout. PSYCH - A&Ox3 and cooperates fully with examiner. Pt is very pleasant and interacts well with examiner. Results & Data Results & Data Vital Signs (Past 12 Hours) Vital Signs Temp Pulse Resp BP Pulse Ox O2 Del Method 02/08/24 22:51 Room Air 02/08/24 22:51 36.9 C 89 20 139/83 94 Room Air 02/08/24 22:11 86 24 119/84 94 Room Air 02/08/24 20:30 89 22 124/85 96 Room Air PG Care Time/CCT Total # of Minutes Spent Total Time Spent with Patient: Total time spent is greater than 50% in coordination of care (as documented) at patient's floor/unit and/or counseling patient: Coding Level of Care Code 78859 IN/OBS CONSULT LVL 4,60M Diagnoses Left lower lobe consolidation J18.1 Parainfluenza B34.8 Parapneumonic effusion J18.9; J91.8 Pleuritic chest pain R07.81
--- NOTE | 2024-02-09 12:55 | Discharge Summary ---
Date of Service February 09, 2024 Admission HPI Per Admitting Provider David is a 33-year-old male with a past medical history of necrotizing pneumonia and hypertension, who presented to the ER today with a complaint of left-sided chest pain. In the ED, patient described a sensation of "tearing" rib pain. Patient denies any trauma, direct or otherwise. According to the patient, on Friday he suffered a cold/flulike symptoms cough, rhinorrhea that "went through the entire family." After briefly improving, he began experiencing mild left-sided pain continued to worsen. Pain is aggravated by coughing, deep inspiratory breaths. He denies headache, fever, chills, nausea, vomiting, abdominal pain, or fatigue. In the ED, vitals were stable, within normal limits. Initial workup was notable for WBC-15.56. BMP was mostly normal. Respiratory bio fire was positive for parainfluenza 3 but was otherwise negative. Chest x-ray was negative for acute fracture or other intrapulmonary process. CTA chest revealed "left lower lobe airspace consolidation suggestive of pneumonia with small to moderate parapneumonic effusion" as well as "mediastinal and hilar lymphadenopathy." He received a 1 L NS bolus, and a dose of IV Zosyn the hospital service was then consulted for admission. Patient had previously presented with pulmonary symptoms on at least 2 prior occasions. In March 2023, after presenting with chest pain and hemoptysis imaging revealed left upper lobe necrosis and cavitation that was determined to be necrotizing pneumonia after an exhaustive pulmonary workup (TB, Coccidioides, cryptococcus, histoplasma) returned negative. He was subsequently cleared by pulmonology on outpatient follow-up. In January 2019, he presented with hemoptysis, shortness of breath, and right-sided chest pain CT chest (elevated D-dimer had raised suspicion for PE) revealed left upper lobe consolidation thought to be a round pneumonia. He was discharged home from the ER on cefdinir and azithromycin. Admission Exam Per Admitting Provider General: No acute distress HEENT: PERRLA. Normal conjunctiva, anicteric sclera. Oropharynx normal. Respiratory: Respiratory effort diminished due to pain. Diminished breath sounds bibasilarly, L >R. No crackles or rhonchi heard. Cardiovascular: RRR without murmurs, gallops, or rubs. No pedal edema. GI: Soft abdomen with normal bowel sounds heard on auscultation. Nontender x4 quadrants Neuro: Alert and oriented x3. Principal Diagnosis Pneumonia Discharge Exam Constitutional WD/WN, vitals as above Respiratory Slightly restricted chest wall excursion, limited by pain, mildly diminished breath sounds in LLL, otherwise no wheezes, rales, rhonchi appreciated. Cardiovascular RRR, no murmur, no edema Skin no rashes, warm and dry Psychiatric A+Ox3, euthymic affect Discharge Data Allergies Allergy/AdvReac Type Severity Reaction Status Date / Time No Known Allergies Allergy Verified 09/09/23 08:14 Consultations 02/08/24 19:37 ED Decision to Admit Stat 02/08/24 23:57 Consult Pulmonology Routine Ordered Studies Abdomen/Pelvis CT 02/08/24 16:57 CT angio chest PE protocol, CT abd pelvis IV con only CT DOSE: 916.76 mGy.cm (accession [id number]), 1458.22 mGy.cm (accession [id number]) HISTORY: 33 years-old Male with L sided rib pain/ flank pain, pain w/ deep breath. Acute shortness of breath with left-sided chest and abdominal pain TECHNIQUE: Multiple CTA images of the chest were obtained after the intravenous administration of 119 ml Optiray. Coronal and sagittal MIPS were obtained from the axial data set and were submitted for review. All measurements were obtained according to NASCET criteria. CT abdomen and pelvis with IV contrast also obtained. A dose lowering technique was utilized adhering to the principles of ALARA. COMPARISON: Chest CT 06/12/2023 FINDINGS: CTA: No central pulmonary emboli identified. Evaluation of the distal branches limited secondary to respiratory motion. Normal thoracic aorta.Heart size is normal. CT CHEST: Unremarkable thyroid. Progressive mediastinal and hilar lymphadenopathy. Paratracheal and hilar lymph nodes measure up to 11 mm. Small to moderate left pleural effusion. No pneumothorax. Respiratory motion limits evaluation of the lungs. Bronchial wall thickening. There are a few areas of subpleural nodular consolidation within the right upper lobe measuring up to 7 mm on image 144, likely infectious or inflammatory. Patchy left basilar consolidation with a focal area of 6 cm consolidation within the left lower lobe subpleural distribution on image 97. Unremarkable soft tissues. No acute fracture. CT ABDOMEN AND PELVIS: Mid to distal esophageal wall thickening with adjacent inflammatory stranding. Hepatosplenomegaly with hepatic steatosis. Patent portal vein. No free air. Unremarkable pancreas, gallbladder and adrenal glands. Unremarkable kidneys. No hydronephrosis. Unremarkable urinary bladder. Aorta and IVC are within normal limits. No lymphadenopathy. No bowel obstruction or bowel wall thickening. No ascites or mesenteric inflammation. Normal appendix. Stool-filled terminal ileum. No acute fracture. IMPRESSION: 1. Left lower lobe airspace consolidation suggestive of pneumonia with small to moderate parapneumonic effusion. Follow-up imaging after treatment course is needed in order to document complete resolution. 2. Subpleural subcentimeter nodules within the right lung measuring up to 7 mm, likely infectious or inflammatory. Attention at follow-up recommended. 3. Mediastinal and hilar lymphadenopathy, likely reactive. 4. Hepatosplenomegaly with hepatic steatosis. 6. No pulmonary emboli. ACT 112: Negative or not required by law. The above report was generated using voice recognition software. It may contain grammatical, syntax or spelling errors. Electronically signed by: Ander Walsh M.D. 02/08/2024 7:08 PM Chest CTA 02/08/24 16:58 CT angio chest PE protocol, CT abd pelvis IV con only CT DOSE: 916.76 mGy.cm (accession [id number]), 1458.22 mGy.cm (accession [id number]) HISTORY: 33 years-old Male with L sided rib pain/ flank pain, pain w/ deep breath. Acute shortness of breath with left-sided chest and abdominal pain TECHNIQUE: Multiple CTA images of the chest were obtained after the intravenous administration of 119 ml Optiray. Coronal and sagittal MIPS were obtained from the axial data set and were submitted for review. All measurements were obtained according to NASCET criteria. CT abdomen and pelvis with IV contrast also obtained. A dose lowering technique was utilized adhering to the principles of ALARA. COMPARISON: Chest CT 06/12/2023 FINDINGS: CTA: No central pulmonary emboli identified. Evaluation of the distal branches limited secondary to respiratory motion. Normal thoracic aorta.Heart size is normal. CT CHEST: Unremarkable thyroid. Progressive mediastinal and hilar lymphadenopathy. Paratracheal and hilar lymph nodes measure up to 11 mm. Small to moderate left pleural effusion. No pneumothorax. Respiratory motion limits evaluation of the lungs. Bronchial wall thickening. There are a few areas of subpleural nodular consolidation within the right upper lobe measuring up to 7 mm on image 144, likely infectious or inflammatory. Patchy left basilar consolidation with a focal area of 6 cm consolidation within the left lower lobe subpleural distribution on image 97. Unremarkable soft tissues. No acute fracture. CT ABDOMEN AND PELVIS: Mid to distal esophageal wall thickening with adjacent inflammatory stranding. Hepatosplenomegaly with hepatic steatosis. Patent portal vein. No free air. Unremarkable pancreas, gallbladder and adrenal glands. Unremarkable kidneys. No hydronephrosis. Unremarkable urinary bladder. Aorta and IVC are within normal limits. No lymphadenopathy. No bowel obstruction or bowel wall thickening. No ascites or mesenteric inflammation. Normal appendix. Stool-filled terminal ileum. No acute fracture. IMPRESSION: 1. Left lower lobe airspace consolidation suggestive of pneumonia with small to moderate parapneumonic effusion. Follow-up imaging after treatment course is needed in order to document complete resolution. 2. Subpleural subcentimeter nodules within the right lung measuring up to 7 mm, likely infectious or inflammatory. Attention at follow-up recommended. 3. Mediastinal and hilar lymphadenopathy, likely reactive. 4. Hepatosplenomegaly with hepatic steatosis. 6. No pulmonary emboli. ACT 112: Negative or not required by law. The above report was generated using voice recognition software. It may contain grammatical, syntax or spelling errors. Electronically signed by: Ander Walsh M.D. 02/08/2024 7:08 PM Hospital Course (1) Left lower lobe consolidation: (2) Parainfluenza: (3) Pleuritic chest pain: (4) Hypertension: Plan 33 M with PMH of necrotizing pneumonia (in 2022) and hypertension who presented to the ER with pleuritic left-sided chest pain x 5 days, found to have left lower lobe consolidation concerning for pneumonia. Left Lower Lobe Consolidation/Pleuritic Chest Pain -CTA chest: Left lower lobe airspace consolidation suggestive of pneumonia, with small to moderate parapneumonic effusion; mediastinal and hilar lymphadenopathy. Sputum culture negative. -WBC 15.56 on admission, VSS, clinically stable -Respiratory Biofire positive for parainfluenza 3. -S/p empiric Zosyn in ER, transitioned to IV Ceftriaxone + PO Azithromycin on admission -Pulmonology consulted, agreed with tx for pneumonia, recommend follow up chest CT in 3-4 months to ensure resolution. -Discharged on Augmentin x 5 days. -Suspect pleuritic chest pain related to pneumonia/parapneumonic effusion - continue Motrin prn for pain control, expect that this will resolve spontaneously. Total Time Total Time Spent Total Time Spent (In Minutes): <30 Discharge Plan Discharge Items Patient Disposition: Home - Self-Care Reason For Visit: CHEST PAIN Discharge Diagnosis: pneumonia Condition on Discharge: Good Activity: Resume your previous activity Non-emergency contact: Primary Care Provider and Cell Changer Call non-emergency contact if: you have any medication questions, your symptoms worsen and you have a fever Follow-up/Referrals: Marie Esparza DO [Primary Care Provider] - 02/24/24 8:20 am Diet: Regular Addtl Attending Provider Instructions: You were admitted to the hospital for left rib and chest wall pain - imaging demonstrated a left lower lobe consolidation, consistent with pneumonia. You were also seen by pulmonology while hospitalized; they agreed with the recommendation to treat with antibiotics (see below for instructions). Moving forward, we recommend follow up with your PCP and would recommend a follow up CT of your chest in 3-4 months to ensure resolution. We expect that your rib/chest wall pain should resolve with time - in the interim, you may continue to take Ibuprofen to reduce inflammation and control pain. A discharge summary will be sent to your primary care physician to ensure continuity of care. Please bring this discharge summary with you to your next office appointment so that your provider can review it at that time. Medications: Your medication list has been reviewed and reconciled upon discharge to ensure accuracy and continuity of care. An updated list of all your medications is included with your hospital discharge paperwork. Please review this list closely and make note of any changes to your medications. New Medications: Augmentin: Please take 1 tab twice daily for 5 days. Follow up appointments: - Make a follow up appointment with your PCP within the next week. It is very important that you follow up with them shortly after discharge from the hospital. - Keep all of your follow up appointments as already scheduled. If you cannot make an appointment, notify your provider. CONTACT YOUR PRIMARY CARE PROVIDER if you experience any of the following: - Difficulty following your treatment plan - Difficulty taking any of your medications CALL 911 OR GO TO THE EMERGENCY DEPARTMENT if you experience any of the following: - Sudden, severe abdominal pain or nausea/vomiting - Severe chest pain or chest pain that radiates to your jaw or arm - Sudden, severe shortness of breath or difficulty breathing Pending Studies at Discharge: No Stand-Alone Forms: [facility], Work/School Release, Smoking Cessation Medications and DC Order Prescriptions: New amoxicillin-pot clavulanate 875-125 mg tablet 1 tab PO BID 5 Days Qty: 10 0RF Continued lisinopril 20 mg tablet 20 mg PO HS Qty: 90 1RF multivitamin tablet 1 tab PO DAILY Discharge Orders: Discharge Order (Routine); Ordered 02/09/24 Ordered By: Jordin Hatch Admission Data Admit Date/Time: 02/08/24 21:35 Attending Provider: Jimy Sanchez Admit Provider: Sudeep Woodall Primary Care Provider: Marie Esparza Other Providers: Flex Parnell; Anthony Mac; Karl Jean Baptiste; Nimesh Santos; Rodrigo Gamboa; Maryse Toussaint; Shaniqua Rain; Lasha Snow; Todd Manzano; Unique Kay Other Interventions: Discharge Summary Assessment (RN) Last Done: 02/09/24 13:00 Supervising Physician Co-Signing Physician Notes I personally examined the patient and verified all black points of history and exam, discussed case, and agree with decision making with Dr Hatch Feeling better. Feeling up to going home. Pulmonary input appreciated. Vitals noted, in general he is awake and alert pleasant no distress. HEENT normocephalic atraumatic mucous membranes moist. Breathing unlabored no accessory muscle use good effort on room air. Neuro without focal deficits. Community-acquired pneumoniawith sepsis present on admission (sepsis now resolved)safe/stable for home. In regards to recurrent pneumoniasthey are happening just often and often a gentleman this young that it does raise concern about some underlying propensity (outpatient follow-up with pulmonary and immunology), and at the same time happening spaced out enough that it could simply be a common infection and bad luck. Otherwise as above Resident Activity Tracking Resident Involvement: Resident Care Provided Care Provided: Adult Hospital Medicine
--- NOTE | 2024-02-09 17:45 | Billing Data ---
Date of Service February 09, 2024 Coding Level of Care Code 79372 IN/OBS DISCH 30 MIN/LESS
--- NOTE | 2024-02-09 19:33 | Billing Data ---
Date of Service February 09, 2024 Coding Level of Care Code 49375 INT INP/OBS CARE
[2024-02-09] MEDS ORDERED: lisinopril 20 MG TAB PO SCH (21:00)
--- NOTE | 2024-02-09 22:05 | Electrocardiogram Report ---
Test Reason : Blood Pressure : / mmHG Vent. Rate : 096 BPM Atrial Rate : 096 BPM P-R Int : 164 ms QRS Dur : 090 ms QT Int : 332 ms P-R-T Axes : 020 046 017 degrees QTc Int : 419 ms Normal sinus rhythm Normal ECG When compared with ECG of 22-MAR-2023 12:55, No significant change was found Confirmed by Mick Cueto ([id number]) on 02/09/2024 10:05:17 PM Referred By: REFERRED SELF Confirmed By:Mick Cueto
[2024-02-10 16:16] LABS: Angiotensin Converting Enzyme 10 U/L (9-67); Anti Nuclear Antibody Screen NEGATIVE (NEGATIVE)
== END 2024-02-09 16:18 | disposition home or self-care (01) | DRG 194 ==
LOC: ED 15:30 → INTOOBSV 21:35 → SUATTDRO 21:35 → 3E 21:35